=== PATIENT | female | born 1935 | race Caucasian/White ===

== ENCOUNTER → 2016-08-04 | Day surgery (SDC) | payer OTHER ==
[2016-07-23 15:22] VITALS: Ht 144.8 cm; Wt 52.3 kg
[~2016-08-04] VITALS: Ht 144.8 cm; Wt 52.3 kg
[~2016-08-04] MED LIST: 500ML BSS 0.3ML EPI 1:1000PF IRRIG ONE; ACETAMINOPHEN 325 MG TAB PO PRN; AMVISC PLUS 0.8ML SYRINGE INT OCU ONE; BROM0.07 OPL; BSS FLUSH ONE; CALC-354 PO; ENDOCOAT 0.85ML SYRINGE INT OCU ONE; EpINEphrine INJ 1MG/ML AMP 1 MG/ML AMP ONE; HYDR25TA4 PO; LACTATED RINGER'S 1000ML 500 ML IV SCH; LIDOCAINE 4% OP SOLN DROP CHARGE ONE; LIDOCAINE 4% OP SOLN DROP CHARGE OPL SCH; LIDOCAINE HCL 1% MPF 2 ML VIAL ONE; MCRK/10 PO; MIDAZOLAM HCL 1 MG/ML 2ML VIAL ONE; MIX: 4ML BSS 1ML EPI 1:1000 PF TOP ONE; MOXIFLOXACIN OPH SOLN PER DROP CHARGE ONE; MULT-506 PO; POVIDONE-IODINE OP SOLN 30 ML BTL ONE; PRED-301 PO; PRED1SUS OPL; PROPARACAINE 0.5% OP SOLN PER DROP CHARGE OPL SCH; SIMV40TA2 PO; TOBRAMYCIN/DEXAMETHASONE OPH OINT PER APPLN CHARGE ONE; ZNTT/150 PO
[2016-08-04] MEDS: PHENYLEPHRINE HCL 2.5% OP SOLN PER DROP CHARGE OPL SCH ×3 (09:24→09:33)
[2016-08-04] MEDS: TROPICAMIDE 1% OP SOLN PER DROP CHARGE OPL SCH ×3 (09:25→09:35)
[2016-08-04] MEDS: CYCLOPENTOLATE HCL 1% OP SOLN PER DROP CHARGE OPL SCH ×3 (09:26→09:36)
[2016-08-04] MEDS: MOXIFLOXACIN OPH SOLN PER DROP CHARGE OPL SCH ×3 (09:27→09:37)
--- NOTE | 2016-08-04 09:37 | History & Physical Bridge - [place] ---
H&P Re-Evaluation Bridge Note: I have examined the patient, reviewed the History & Physical and in the interval since the performance of the History & Physical I have noted the following changes of clinical significance: No changes noted. Left eye cataract surgery.
--- NOTE | 2016-08-04 11:02 | [facility] Post Operative Brief Note ---
Immediate Operative Summary Operative Date Aug 04, 2016. Pre-Operative Diagnosis Cataract Left Eye Post-Operative Diagnosis Same Procedure(s) Performed Left Cataract Phacoemulsification With Intraocular Lens Implant Surgeon Dr. Briseno Elevator Constructor Electric Surgeon(s) None Estimated Blood Loss 0 mL Findings left cataract Specimens None Complication(s) None Disposition
--- NOTE | 2016-08-04 11:03 | [facility] Operative Report ---
Operative Report Date of Service Aug 04, 2016. Operative Report Phaco with monofocal IOL DATE OF OPERATION: 08/04/16 PREOPERATIVE DIAGNOSIS: Senile nuclear cataract, left eye POSTOPERATIVE DIAGNOSIS: Senile nuclear cataract, left eye PROCEDURE PERFORMED: Phacoemulsification with intraocular lens implantation, left eye SURGEON: Dr. Rex Briseno ANESTHESIA: Topical with 1% intracameral lidocaine and monitored anesthesia care COMPLICATIONS: None DESCRIPTION OF PROCEDURE: After positively identifying the patient both verbally and by wristband in the preoperative area, the left eye was marked as the operative eye. The patient was then brought back to the operating room by the anesthesia and nursing staff where they were given a drop of Lidocaine and betadine into the operative eye. They were then sterilely prepped and draped in the standard fashion typical for ophthalmic surgery. Steri-strips were placed along the upper eyelids to keep the lashes back, and a lid speculum was placed into the operative eye. At this point, a documented time out was performed with members of the ophthalmology, nursing, and anesthesia staffs all agreeing upon the correct patient, correct location for surgery, correct procedure, and correct type and power of intraocular lens to be implanted. The microscope was then swung into position. First, a paracentesis wound was made using a sideport blade. Then, in sequence, 1% preservative-free lidocaine followed by Endocoat viscoelastic was injected into the anterior chamber. Next , the main incision was made with a keratome blade in triplanar fashion. A sharp cystotome was introduced into the eye and used to create a tear in the anterior capsule, which was directed into a continuous curvilinear capsulorrhexis using Utrata forceps. Hydrodissection was then performed with BSS on a flat-tip cannula. Next, the phacoemulsification handpiece was introduced into the eye and used to remove the nucleus in a qckikt-smc-ngifeph fashion. This was done without complication and then the irrigation-aspiration handpiece was introduced into the eye and used to remove all remaining cortical and epinuclear material. Amvisc was then injected into the anterior chamber as well as into the capsular bag and using the lens injector system, an MX60 23.0 D lens, serial number [id number], and expiration date 01/2019 was injected into the capsular bag and rotated into the correct position. Next, the irrigation- aspiration handpiece was used to remove all remaining Amvisc. BSS was used to hydrate the main wound, and then BSS was injected into the paracentesis site to reach physiologic pressure and then the main wound was checked and found to be watertight. The patient was given drops of Vigamox and Tobradex ointment into the operative eye, and then the surrounding area was cleaned and dried. A clear plastic shield was placed over the eye and the patient was then sat up and taken from the operating room by the anesthesia staff having tolerated the procedure well and suffering no complications. DISPOSITION: The patient was returned to the recovery room in stable condition. I attest to the content of the Intraoperative Record and any orders documented therein. Any exceptions are noted below.
--- NOTE | 2016-08-04 11:05 | Discharge Instructions-SurgCtr ---
Discharge Instructions Date of Service Aug 04, 2016. Visit Reason for Visit: Cataract Left Eye Discharge Discharge Diagnosis / Problem: left cataract Discharge Goals Goal(s): Decrease discomfort, Improve function Activity Recommendations Activity Limitations: as noted below Anesthesia . Post Anesthesia Instructions: If you have had General Anesthesia or IV Sedation: * Do not drive today. * Resume driving when surgeon permits. * Do not make important decisions or sign legal documents today. * Call surgeon for: 1. Temperature elevations greater than 101 degrees F. 2. Uncontrollable pain. 3. Excessive bleeding. 4. Persistent nausea and vomiting. 5. Medication intolerance (nausea, vomiting or rash). * For nausea and vomiting use only clear liquids such as: tea, soda, bouillon until nausea subsides, then gradually increase diet as tolerated. * If you have any concerns or questions, call your surgeon's office. If physician is unavailable and it is an emergency, call 911 or go to the nearest emergency room. . Instructions / Follow-Up Instructions / Follow-Up ACTIVITY RECOMMENDATIONS: * Light activities. * You may walk outside, read, watch television. * You may notice redness on the white part of the eye and some blurry vision - this is normal. MEDICATIONS: Resume previous medications unless instructed otherwise by your surgeon. Start all eye drops at 1 pm today: * Eye drops (today): Prednisone - one drop in operative eye every 2 hours while awake Ofloxacin - one drop in operative eye every 2 hours while awake Bromfenac - one drop in operative eye daily SPECIAL CARE INSTRUCTIONS: * Tape plastic shield over eye to sleep at night. Call your doctor at with any concerns or problems. FOLLOW UP VISIT: Follow-up with Dr Briseno at [place] office as scheduled. Diet Recommendations Home Diet: no limitations Procedures Procedures Performed: Left Cataract Phacoemulsification With Intraocular Lens Implant Pending Studies Studies pending at discharge: no Medical Emergencies . Who to Call and When: Medical Emergencies: If at any time you feel your situation is an emergency, please call 911 immediately. . Non-Emergent Contact Non-Emergency issues call your: Surgeon . . "Provider Documentation" section prepared by Rex Briseno. .
[2016-08-04 11:06] VITALS: TEMP 36.7
--- NOTE | 2016-08-04 11:10 | Anesthesia Progress Nt - [facility] ---
Anesthesia Post Op Note Date & Time Aug 04, 2016 at 11:09 Vital Signs Pain Intensity: 0 Vital Signs Past 12 Hours Date Time Temp Pulse Resp B/P Pulse Ox O2 Delivery O2 Flow Rate FiO2 08/04/16 11:06 36.7 62 16 158/71 96 Room Air 08/04/16 09:14 36.5 62 18 165/71 97 Room Air Notes Mental Status: alert / awake / arousable, participated in evaluation Pt Amnestic to Procedure: No (recall as expected) Nausea / Vomiting: adequately controlled Pain: adequately controlled Airway Patency, RR, SpO2: stable & adequate BP & HR: stable & adequate Hydration State: stable & adequate Anesthetic Complications: no major complications apparent Pt doing well.
[2016-08-04 11:23] VITALS: BP 158/69; PULSE 58; O2SAT 95
== END | disposition home or self-care (01) ==
LOC: X.SURG 08:59
PROVIDERS: ATTEND Ophthalmology
DX: H25.12 Age-related nuclear cataract, left eye (principal); I10 Essential (primary) hypertension; M06.9 Rheumatoid arthritis, unspecified; E78.00 Pure hypercholesterolemia, unspecified; Z90.710 Acquired absence of both cervix and uterus

== ENCOUNTER → 2016-08-25 | Day surgery (SDC) | payer OTHER ==
[2016-08-19 10:55] VITALS: Ht 144.8 cm; Wt 52.3 kg
[~2016-08-25] VITALS: Ht 144.8 cm; Wt 52.3 kg
[~2016-08-25] MED LIST changes: +FENTANYL CITRATE INJ 50 MCG/1 ML 2 ML VIAL ONE; -LIDOCAINE 4% OP SOLN DROP CHARGE OPL SCH; +LIDOCAINE 4% OP SOLN DROP CHARGE OPR SCH; -PROPARACAINE 0.5% OP SOLN PER DROP CHARGE OPL SCH; +PROPARACAINE 0.5% OP SOLN PER DROP CHARGE OPR SCH
[2016-08-25] MEDS: PHENYLEPHRINE HCL 2.5% OP SOLN PER DROP CHARGE OPR SCH ×3 (10:53→11:03)
[2016-08-25] MEDS: TROPICAMIDE 1% OP SOLN PER DROP CHARGE OPR SCH ×3 (10:54→11:04)
[2016-08-25] MEDS: CYCLOPENTOLATE HCL 1% OP SOLN PER DROP CHARGE OPR SCH ×3 (10:55→11:05)
[2016-08-25] MEDS: MOXIFLOXACIN OPH SOLN PER DROP CHARGE OPR SCH ×3 (10:56→11:06)
--- NOTE | 2016-08-25 11:31 | History & Physical Bridge - [place] ---
H&P Re-Evaluation Bridge Note: I have examined the patient, reviewed the History & Physical and in the interval since the performance of the History & Physical I have noted the following changes of clinical significance: No changes noted. Right eye cataract surgery.
--- NOTE | 2016-08-25 12:36 | [facility] Post Operative Brief Note ---
Immediate Operative Summary Operative Date August 25, 2016. Pre-Operative Diagnosis Right Eye Cataract Post-Operative Diagnosis same Procedure(s) Performed Right Cataract Phacoemulsification With Intraocular Lens Implant Surgeon Dr. Connie Briseno Booking Manager Surgeon(s) 0 Estimated Blood Loss 0 Findings right cataract Specimens none Complication(s) None Disposition
--- NOTE | 2016-08-25 12:37 | [facility] Operative Report ---
Operative Report Date of Service August 25, 2016. Operative Report Phaco with monofocal IOL DATE OF OPERATION: 08/25/16 PREOPERATIVE DIAGNOSIS: Senile nuclear cataract, right eye POSTOPERATIVE DIAGNOSIS: Senile nuclear cataract, right eye PROCEDURE PERFORMED: Phacoemulsification with intraocular lens implantation, right eye SURGEON: Dr. Rex Briseno ANESTHESIA: Topical with 1% intracameral lidocaine and monitored anesthesia care COMPLICATIONS: None DESCRIPTION OF PROCEDURE: After positively identifying the patient both verbally and by wristband in the preoperative area, the right eye was marked as the operative eye. The patient was then brought back to the operating room by the anesthesia and nursing staff where they were given a drop of Lidocaine and betadine into the operative eye. They were then sterilely prepped and draped in the standard fashion typical for ophthalmic surgery. Steri-strips were placed along the upper eyelids to keep the lashes back, and a lid speculum was placed into the operative eye. At this point, a documented time out was performed with members of the ophthalmology, nursing, and anesthesia staffs all agreeing upon the correct patient, correct location for surgery, correct procedure, and correct type and power of intraocular lens to be implanted. The microscope was then swung into position. First, a paracentesis wound was made using a sideport blade. Then, in sequence, 1% preservative-free lidocaine followed by Endocoat viscoelastic was injected into the anterior chamber. Next , the main incision was made with a keratome blade in triplanar fashion. A sharp cystotome was introduced into the eye and used to create a tear in the anterior capsule, which was directed into a continuous curvilinear capsulorrhexis using Utrata forceps. Hydrodissection was then performed with BSS on a flat-tip cannula. Next, the phacoemulsification handpiece was introduced into the eye and used to remove the nucleus in a aobruq-vem-sqpjizl fashion. This was done without complication and then the irrigation-aspiration handpiece was introduced into the eye and used to remove all remaining cortical and epinuclear material. Amvisc was then injected into the anterior chamber as well as into the capsular bag and using the lens injector system, an MX60 23.0 D lens, serial number [id number], and expiration date 04/2019 was injected into the capsular bag and rotated into the correct position. Next, the irrigation- aspiration handpiece was used to remove all remaining Amvisc. BSS was used to hydrate the main wound, and then BSS was injected into the paracentesis site to reach physiologic pressure and then the main wound was checked and found to be watertight. The patient was given drops of Vigamox and Tobradex ointment into the operative eye, and then the surrounding area was cleaned and dried. A clear plastic shield was placed over the eye and the patient was then sat up and taken from the operating room by the anesthesia staff having tolerated the procedure well and suffering no complications. DISPOSITION: The patient was returned to the recovery room in stable condition. I attest to the content of the Intraoperative Record and any orders documented therein. Any exceptions are noted below.
--- NOTE | 2016-08-25 12:38 | Discharge Instructions-SurgCtr ---
Discharge Instructions Date of Service August 25, 2016. Visit Reason for Visit: Cataract Right Eye Discharge Discharge Diagnosis / Problem: right cataract Discharge Goals Goal(s): Decrease discomfort, Improve function Activity Recommendations Activity Limitations: as noted below Anesthesia . Post Anesthesia Instructions: If you have had General Anesthesia or IV Sedation: * Do not drive today. * Resume driving when surgeon permits. * Do not make important decisions or sign legal documents today. * Call surgeon for: 1. Temperature elevations greater than 101 degrees F. 2. Uncontrollable pain. 3. Excessive bleeding. 4. Persistent nausea and vomiting. 5. Medication intolerance (nausea, vomiting or rash). * For nausea and vomiting use only clear liquids such as: tea, soda, bouillon until nausea subsides, then gradually increase diet as tolerated. * If you have any concerns or questions, call your surgeon's office. If physician is unavailable and it is an emergency, call 911 or go to the nearest emergency room. . Instructions / Follow-Up Instructions / Follow-Up ACTIVITY RECOMMENDATIONS: * Light activities. * You may walk outside, read, watch television. * You may notice redness on the white part of the eye and some blurry vision - this is normal. MEDICATIONS: Resume previous medications unless instructed otherwise by your surgeon. Start all eye drops at 2:30 pm today: * Eye drops (today): Prednisone - one drop in operative eye every 2 hours while awake Ofloxacin - one drop in operative eye every 2 hours while awake Bromfenac - one drop in operative eye daily SPECIAL CARE INSTRUCTIONS: * Tape plastic shield over eye to sleep at night. Call your doctor at with any concerns or problems. FOLLOW UP VISIT: Follow-up with Dr Briseno at [facility] as scheduled. Diet Recommendations Home Diet: no limitations Procedures Procedures Performed: Right Cataract Phacoemulsification With Intraocular Lens Implant Pending Studies Studies pending at discharge: no Medical Emergencies . Who to Call and When: Medical Emergencies: If at any time you feel your situation is an emergency, please call 911 immediately. . Non-Emergent Contact Non-Emergency issues call your: Surgeon . . "Provider Documentation" section prepared by Rex Briseno. .
[2016-08-25 12:40] VITALS: TEMP 36.3
--- NOTE | 2016-08-25 12:46 | Anesthesia Progress Nt - [facility] ---
Anesthesia Post Op Note Date & Time August 25, 2016 at 12:46 Vital Signs Pain Intensity: 0 Vital Signs Past 12 Hours Date Time Temp Pulse Resp B/P Pulse Ox O2 Delivery O2 Flow Rate FiO2 08/25/16 12:40 36.3 50 16 147/67 94 Room Air 08/25/16 10:48 36.7 58 16 136/74 95 Room Air Notes Mental Status: alert / awake / arousable, participated in evaluation Pt Amnestic to Procedure: Yes Nausea / Vomiting: adequately controlled Pain: adequately controlled Airway Patency, RR, SpO2: stable & adequate BP & HR: stable & adequate Hydration State: stable & adequate Anesthetic Complications: no major complications apparent
[2016-08-25 12:54] VITALS: BP 151/73; PULSE 53; O2SAT 96
== END | disposition home or self-care (01) ==
LOC: X.SURG 10:25
PROVIDERS: ATTEND Ophthalmology
DX: H25.11 Age-related nuclear cataract, right eye (principal); I10 Essential (primary) hypertension; E11.9 Type 2 diabetes mellitus without complications; M19.90 Unspecified osteoarthritis, unspecified site; Z88.0 Allergy status to penicillin; Z98.42 Cataract extraction status, left eye; Z90.710 Acquired absence of both cervix and uterus; Z79.52 Long term (current) use of systemic steroids

== ENCOUNTER → 2016-08-27 | Outpatient (CLI) | payer OTHER ==
[~2016-08-27] MED LIST changes: -500ML BSS 0.3ML EPI 1:1000PF IRRIG ONE; -ACETAMINOPHEN 325 MG TAB PO PRN; -AMVISC PLUS 0.8ML SYRINGE INT OCU ONE; -BSS FLUSH ONE; -ENDOCOAT 0.85ML SYRINGE INT OCU ONE; -EpINEphrine INJ 1MG/ML AMP 1 MG/ML AMP ONE; -FENTANYL CITRATE INJ 50 MCG/1 ML 2 ML VIAL ONE; -LACTATED RINGER'S 1000ML 500 ML IV SCH; -LIDOCAINE 4% OP SOLN DROP CHARGE ONE; -LIDOCAINE 4% OP SOLN DROP CHARGE OPR SCH; -LIDOCAINE HCL 1% MPF 2 ML VIAL ONE; -MIDAZOLAM HCL 1 MG/ML 2ML VIAL ONE; -MIX: 4ML BSS 1ML EPI 1:1000 PF TOP ONE; -MOXIFLOXACIN OPH SOLN PER DROP CHARGE ONE; -POVIDONE-IODINE OP SOLN 30 ML BTL ONE; -PROPARACAINE 0.5% OP SOLN PER DROP CHARGE OPR SCH; -TOBRAMYCIN/DEXAMETHASONE OPH OINT PER APPLN CHARGE ONE
[2016-08-27 13:29] LABS: ALB/GLOB RATIO 1.2 (0.9-2); ALKALINE PHOSPHATASE 46 U/L (45-117); ALT/SGPT 25 U/L (12-78); AST/SGOT 15 U/L (15-37); BLOOD UREA NITROGEN 16 mg/dl (7-18); BUN/CREATININE RATIO 24.5 (10-20); CALCIUM 8.7 mg/dl (8.5-10.1); CARBON DIOXIDE 29 mmol/L (21-32); CHLORIDE 104 mmol/L (98-107); CHOLESTEROL 177 mg/dl (0-200); CHOLESTEROL/HDL RATIO 2.2; CREATININE 0.66 mg/dl (0.60-1.20); GLUCOSE 108 mg/dl (70-99); HDL CHOLESTEROL 79 mg/dl; LDL CHOLESTEROL CALCULATED 72 mg/dl; POTASSIUM 3.7 mmol/L (3.5-5.1); SODIUM 139 mmol/L (136-145); TRIGLYCERIDES 129 mg/dl (0-150); VERY LOW DENSITY LIPOPROT CALC 26 mg/dl
[2016-08-27 13:44] LABS: ESTIMATED AVERAGE GLUCOSE 151 mg/dl; HA1C FLAG Normal (Normal)
== END | disposition home or self-care (01) ==
LOC: C.LABPVFM 09:20
PROVIDERS: ATTEND Nurse Practitioner
DX: R73.01 Impaired fasting glucose (principal); E78.5 Hyperlipidemia, unspecified; I10 Essential (primary) hypertension

== ENCOUNTER → 2016-10-06 | Outpatient (CLI) | payer OTHER ==
--- NOTE | 2016-10-06 16:08 | MAMMOGRAPHY REPORT ---
BILATERAL DIGITAL SCREENING MAMMOGRAM WITH CAD: 10/06/2016 CLINICAL HISTORY: Routine screening. Patient has no complaints. TECHNIQUE: Bilateral CC and MLO, right XCCL views were obtained. Current study was also evaluated w ith a Computer Aided Detection (CAD) system. COMPARISON: Comparison is made to exams dated: 09/12/2015 mammogram, 09/10/2014 mammogram, 08/29/2013 [place] mogram, 08/28/2012 mammogram, 08/26/2011 mammogram, and 08/24/2010 mammogram - [facility]. BREAST COMPOSITION: There are scattered areas of fibroglandular density in both breasts. FINDINGS: There are a few benign rim calcifications scattered in the breasts. No suspicious mass, ar chitectural distortion or cluster of microcalcifications is seen. IMPRESSION: ACR BI-RADS CATEGORY 1: NEGATIVE There is no mammographic evidence of malignancy. A 1 year screening mammogram is recommended. The pa tient will receive written notification of the results. Approximately 10% of breast cancers are not detected with mammography. A negative mammographic report should not delay biopsy if a clinically suggestive mass is present. Denita Sethi M.D. ay/:10/06/2016 15:17:43 Flight Attendant Ramp: Adia CHRIS(Bryon)([place])([place]), [facility] letter sent: Normal 1/2 BI-RADS Code: ACR BI-RADS Category 1: Negative
== END | disposition home or self-care (01) ==
LOC: C.MAMM 14:50
PROVIDERS: ATTEND Nurse Practitioner
DX: Z12.31 Encounter for screening mammogram for malignant neoplasm of breast (principal)

== ENCOUNTER → 2017-02-23 | Outpatient (CLI) | payer OTHER ==
[2017-02-23 13:15] LABS: BLOOD UREA NITROGEN 14 mg/dl (7-18); BUN/CREATININE RATIO 20.5 (10-20); CALCIUM 9.3 mg/dl (8.5-10.1); CARBON DIOXIDE 28 mmol/L (21-32); CHLORIDE 98 mmol/L (98-107); CREATININE 0.69 mg/dl (0.60-1.20); GLUCOSE 103 mg/dl (70-99); POTASSIUM 3.6 mmol/L (3.5-5.1); SODIUM 134 mmol/L (136-145)
[2017-02-23 13:22] LABS: ESTIMATED AVERAGE GLUCOSE 154 mg/dl; HA1C FLAG Normal (Normal)
== END | disposition home or self-care (01) ==
LOC: C.LABPVFM 08:59
PROVIDERS: ATTEND Nurse Practitioner
DX: R73.01 Impaired fasting glucose (principal); I10 Essential (primary) hypertension

== ENCOUNTER → 2017-08-26 | Outpatient (CLI) | payer OTHER ==
[~2017-08-26] MED LIST changes: +RANI150T85 PO; -ZNTT/150 PO
[2017-08-26 13:30] LABS: HEMOGLOBIN A1C 6.9 % (4.5-5.6)
[2017-08-26 13:46] LABS: BLOOD UREA NITROGEN 21 mg/dl (7-18); CALCIUM 8.8 mg/dl (8.5-10.1); CARBON DIOXIDE 30 mmol/L (21-32); CREATININE 0.78 mg/dl (0.60-1.20); GLUCOSE 104 mg/dl (70-99); POTASSIUM 3.9 mmol/L (3.5-5.1); SODIUM 135 mmol/L (136-145)
== END | disposition home or self-care (01) ==
LOC: C.LABPVFM 08:18
PROVIDERS: ATTEND Nurse Practitioner
DX: I10 Essential (primary) hypertension (principal); R73.01 Impaired fasting glucose

== ENCOUNTER 2020-07-21 17:24 | Inpatient (IN) ==
--- NOTE | 2020-07-21 17:51 | Emergency Department Note ---
Impression & Plan COVID-19, Weakness, Aortic dilatation ED Provider Note NAME: ED BOWEN AGE: 85 SEX: F : 1935 ARRIVES VIA: Ambulance INFORMANT: patient, ED PROVIDER(S): Benji Contreras MD Chief Complaint: Weakness HPI: Patient does present with concern for weakness that she noticed this morning. The patient also noticed some difficulty with left upper extremity movement. The patient did have fever in triage but the patient denies any fevers or chills. The patient is vaccinated for Covid which was completed back in May. The patient denies any headache, neck pain, nausea, vomiting, back pain, chest pain or shortness of breath. The patient states that her bilateral lower extremity weakness was also present this morning when she woke up. Patient states that this is about the same. The patient denies any sensory deficits. Patient does state that she does have some pain in the left shoulder. Patient denies any exertional symptoms. Patient denies any alcohol or tobacco use. No remote history of smoking. Patient denies any lower extremity swelling. Patient was seen at [facility] had a negative rapid Covid and was sent here for further evaluation and treatment. ROS: See HPI for pertinent positives and negatives. A total of 10 systems were reviewed and otherwise negative. Past medical history: See below Surgical history: See below Social history: See below Physical Exam: GENERAL: Wearing glasses and a mask. NAD, non-toxic. EYE EXAM: Normal conjunctiva. PERRL, no anisocoria and EOM's grossly intact w/o pain. NECK: Supple, no nuchal rigidity, no adenopathy, non-tender. No signs of meningismus. LUNGS: Clear to auscultation. Normal chest wall mechanics. HEART: NSR, no MRG. ABDOMEN: Abdomen soft, non-tender, normo-active bowel sounds, no masses, no rebound or guarding. BACK: No CVA TTP. SKIN: No rashes and no bruising. UPPER EXTREMITIES: Upper extremities are grossly normal. LOWER EXTREMITIES: Grossly normal, no edema. 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 Differential diagnoses: Infection, dehydration, metabolic abnormality, hypo/hyperglycemia, electrolyte disturbance, anemia, hypoxia, cardiac sources, intracerebral event, toxicologic, neurologic, as well as other pathologies. Course: Patient was seen and evaluated the bedside. Full history physical exam was performed. EKG: Indication: Weakness Normal sinus rhythm, rate of 82, normal intervals, left axis deviation, T WI V5 V6. No prior EKGs for comparison. Imaging Studies: See below Cardiac monitoring: An order was placed for continuous cardiac monitoring. The monitor shows a rate of 87 with sinus rhythm. MDM: Patient did have bladder completed along with CT angiography of the head and neck. The patient has had fever so Covid flu and RSV were tested along with urinalysis. Patient has a white count of 15 with a normal H&H and platelet count. Kidney function with mild prerenal azotemia potassium 3.2. Troponin undetectable. Covid positive and negative for flu and RSV. The patient does not complain of respiratory symptoms. Given this with the weakness of the left upper extremity with the patient benefit from continued observation and testing at this time. Chest x-ray which showed cardiomegaly. Patient CT of the head and CT angiography of the head neck showed no ICH mass or obvious stroke. The patient does have mild aneurysmal dilatation of the descending thoracic aorta seen on angiography. Patient does not complain of any chest pain or shortness of breath. Patient's EKG shows T wave inversions V5 V6 but the patient does not complain of any chest pains or shortness of breath. Troponin is not detectable. I did speak with the on-call hospitalist and the patient was admitted to the medicine service by Dr. Daniel. Did inform the patient of the findings. The patient initially had stated that with her shoulder that there might have been some sort of injury but the patient does not complain of some much pain and is no obvious deformity of the left upper extremity. 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 Patient's CT angiography head and neck did not show any obvious findings with regard to left upper extremity weakness. The patient was well out of the window for stroke alert i.e. TPA as the patient had woken up with the weakness as well as the difficulty with the left upper extremity movement upon waking up this morning. Past Med/Surg History Medical History Diverticulosis History of hyperlipidemia Lump of skin Osteoporosis Seronegative arthritis Tinea cruris Weight loss Surgical History History of cataract surgery History of total hysterectomy with no history of abnormal cervical Papanicolaou smear Hx of oral surgery Family History Mother Hypertension Father Lung cancer Sister Breast cancer Cancer Pancreatic cancer Other Colorectal cancer Myocardial infarction Denies family history of Ovarian cancer Prostate cancer Social History Smoking Status: Never smoker Hx Alcohol Use: No Hx Substance Use: No Beliefs That Will Affect Care: None marital status: / Current Living Situation: Family current occupational status: retired Feels Safe at Home: Yes caffeine: Yes Dental Care, Regularly: No Physical Activity Frequency: Does not Exercise Seatbelt Use: always Sunscreen Use: Yes Allergies Allergies Allergy/AdvReac Type Severity Reaction Status Date / Time metformin AdvReac Mild diarrhea Verified 07/21/20 17:59 aspirin AdvReac Unknown DIARRHEA Unverified 07/21/20 17:59 Penicillins AdvReac Unknown DIARRHEA Unverified 07/21/20 17:59 Home Meds Home Medications Medication Instructions Recorded Confirmed calcium carbonate 600 mg(1,500 1 tab PO DAILY tab 12/12/18 07/21/20 mg)-vitamin D3 800 unit chewable tablet multivitamin 1 tab PO DAILY 12/12/18 07/21/20 hydrochlorothiazide 25 mg PO DAILY 07/21/20 07/21/20 potassium chloride 10 meq PO DAILY 07/21/20 07/21/20 Previous Rx's Medication Instructions Recorded prednisone 5 mg tablet 5 mg PO DAILY #30 tab 12/12/18 omeprazole 20 mg capsule,delayed 20 mg PO DAILY #90 cap 05/08/20 release Results & Data (ED) Vital Signs Vital Signs - 24 hr 07/21/20 17:31 07/21/20 18:30 07/21/20 18:57 Temperature 38.3 C H Temperature Source Oral Pulse Rate 87 Pulse Rate [Apical] 82 Respiratory Rate 18 18 Blood Pressure 170/88 H Blood Pressure [Left Arm] 167/92 H Blood Pressure Mean 115 Blood Pressure Mean [Left Arm] 117 Pulse Oximetry 95 95 95 Oxygen Delivery Method Room Air Room Air Room Air Sepsis Recent Fever Within 48 Hours Yes Sepsis New/Unexplained Change in Mental Status N/A Sepsis Action Taken by Nursing No Action Required 07/21/20 19:30 07/21/20 20:33 07/21/20 21:30 Temperature 37.6 C H Temperature Source Oral Pulse Rate Pulse Rate [Apical] 68 75 Respiratory Rate 18 18 18 Blood Pressure Blood Pressure [Left Arm] 154/73 H 164/72 H 163/102 H Blood Pressure Mean Blood Pressure Mean [Left Arm] 100 102 122 Pulse Oximetry 99 100 96 Oxygen Delivery Method Room Air Room Air Sepsis Recent Fever Within 48 Hours Sepsis New/Unexplained Change in Mental Status Sepsis Action Taken by Nursing 07/21/20 22:00 Temperature Temperature Source Pulse Rate Pulse Rate [Apical] 76 Respiratory Rate 18 Blood Pressure Blood Pressure [Left Arm] 155/85 H Blood Pressure Mean Blood Pressure Mean [Left Arm] 108 Pulse Oximetry Oxygen Delivery Method Room Air Sepsis Recent Fever Within 48 Hours Sepsis New/Unexplained Change in Mental Status Sepsis Action Taken by Retirement Medications Current Medication List: was personally reviewed by me Laboratory Data Attestation: I reviewed the patient's lab results. Result diagrams: 07/21/20 18:02 07/21/20 18:02 Lab Results 07/21/20 07/21/20 07/21/20 Range/Units 18:02 18:02 18:02 WBC 15.28 H (4.8-10.8) K/uL RBC 4.55 (4.2-5.4) M/uL Hgb 14.3 (12.0-16.0) g/dL Hct 40.1 (37-47) % MCV 88.1 (80-100) fL MCH 31.4 (25-34) pg MCHC 35.7 (32-36) g/dL RDW Std Deviation 43.1 (36.4-46.3) fL RDW Coeff of Marita 13.4 (11.5-14.5) % Plt Count 285 (130-400) K/uL MPV 10.0 (7.4-10.4) fL Immature Gran % (Auto) 0.3 % Neut % (Auto) 85.3 % Lymph % (Auto) 4.0 % [place] % (Auto) 9.8 % Eos % (Auto) 0.4 % Baso % (Auto) 0.2 % Neut # (Auto) 13.05 H (1.4-6.5) K/uL Lymph # (Auto) 0.61 L (1.2-3.4) K/uL [place] # (Auto) 1.49 H (0.11-0.59) K/uL Eos # (Auto) 0.06 (0-0.5) K/uL Baso # (Auto) 0.03 (0-0.2) K/uL Immature Gran # (Auto) 0.04 H (0.00-0.02) K/uL Sodium 136 (136-145) mmol/L Potassium 3.2 L (3.5-5.1) mmol/L Chloride 102 (98-107) mmol/L Carbon Dioxide 27 (21-32) mmol/L Anion Gap 7.0 (3-11) BUN 16 (7-18) mg/dl Creatinine 0.73 (0.6-1.2) mg/dl Est Cr Clr Drug Dosing 39.7 ml/min Est GFR ( Amer) 86.4 Est GFR (Non-Af Amer) 74.6 BUN/Creatinine Ratio 22.2 H (10-20) Glucose 195 H (70-99) mg/dl Lactate (0.4-2.0) mmol/L Calcium 9.1 (8.5-10.1) mg/dl Total Bilirubin 0.8 (0.2-1) mg/dl AST 12 L (15-37) U/L ALT 17 (12-78) U/L Alkaline Phosphatase 63 (45-117) U/L Troponin I < 0.015 (0-0.045) ng/ml Total Protein 6.8 (6.4-8.2) gm/dl Albumin 3.4 (3.4-5.0) gm/dl Globulin 3.4 (2.5-4.0) gm/dl Albumin/Globulin Ratio 1.0 (0.9-2) TSH 0.561 0.596 (0.300-4.500) uIu/ml Urine Color Urine Appearance (Clear) Urine pH (4.5-7.5) Ur Specific Boyds (1.000-1.030) Urine Protein (Negative) Urine Glucose (UA) (Negative) Urine Ketones (Negative) Urine Blood (Negative) Urine Nitrite (Negative) Urine Bilirubin (Negative) Urine Urobilinogen (Negative) Ur Leukocyte Esterase (Negative) Urine WBC (Auto) (0-5) /hpf Urine RBC (Auto) (0-4) /hpf U Hyaline Cast (Auto) U Epithel Cells (Auto) (0-5) /lpf Urine Bacteria (Auto) (Negative) COVID-19 Eval Order SARS-CoV-2 (PCR) (Negative) Influenza Type A (PCR) (Neg) Influenza Type B (PCR) (Neg) RSV (RT-PCR) (Neg) 07/21/20 07/21/20 07/21/20 Range/Units 18:03 18:53 18:54 WBC (4.8-10.8) K/uL RBC (4.2-5.4) M/uL Hgb (12.0-16.0) g/dL Hct (37-47) % MCV (80-100) fL MCH (25-34) pg MCHC (32-36) g/dL RDW Std Deviation (36.4-46.3) fL RDW Coeff of Marita (11.5-14.5) % Plt Count (130-400) K/uL MPV (7.4-10.4) fL Immature Gran % (Auto) % Neut % (Auto) % Lymph % (Auto) % [place] % (Auto) % Eos % (Auto) % Baso % (Auto) % Neut # (Auto) (1.4-6.5) K/uL Lymph # (Auto) (1.2-3.4) K/uL [place] # (Auto) (0.11-0.59) K/uL Eos # (Auto) (0-0.5) K/uL Baso # (Auto) (0-0.2) K/uL Immature Gran # (Auto) (0.00-0.02) K/uL Sodium (136-145) mmol/L Potassium (3.5-5.1) mmol/L Chloride (98-107) mmol/L Carbon Dioxide (21-32) mmol/L Anion Gap (3-11) BUN (7-18) mg/dl Creatinine (0.6-1.2) mg/dl Est Cr Clr Drug Dosing ml/min Est GFR ( Amer) Est GFR (Non-Af Amer) BUN/Creatinine Ratio (10-20) Glucose (70-99) mg/dl Lactate 1.3 (0.4-2.0) mmol/L Calcium (8.5-10.1) mg/dl Total Bilirubin (0.2-1) mg/dl AST (15-37) U/L ALT (12-78) U/L Alkaline Phosphatase (45-117) U/L Troponin I (0-0.045) ng/ml Total Protein (6.4-8.2) gm/dl Albumin (3.4-5.0) gm/dl Globulin (2.5-4.0) gm/dl Albumin/Globulin Ratio (0.9-2) TSH (0.300-4.500) uIu/ml Urine Color Yellow Urine Appearance Cloudy A (Clear) Urine pH 8.0 H (4.5-7.5) Ur Specific Boyds > 1.045 H (1.000-1.030) Urine Protein Negative (Negative) Urine Glucose (UA) Negative (Negative) Urine Ketones Negative (Negative) Urine Blood Trace H (Negative) Urine Nitrite Negative (Negative) Urine Bilirubin Negative (Negative) Urine Urobilinogen Negative (Negative) Ur Leukocyte Esterase 2+ H (Negative) Urine WBC (Auto) >30 H (0-5) /hpf Urine RBC (Auto) 5-10 H (0-4) /hpf U Hyaline Cast (Auto) Not Reportable U Epithel Cells (Auto) >30 H (0-5) /lpf Urine Bacteria (Auto) 2+ H (Negative) COVID-19 Eval Order [facility]sv at [facility] SARS-CoV-2 (PCR) (Negative) Influenza Type A (PCR) (Neg) Influenza Type B (PCR) (Neg) RSV (RT-PCR) (Neg) 07/21/20 Range/Units 18:54 WBC (4.8-10.8) K/uL RBC (4.2-5.4) M/uL Hgb (12.0-16.0) g/dL Hct (37-47) % MCV (80-100) fL MCH (25-34) pg MCHC (32-36) g/dL RDW Std Deviation (36.4-46.3) fL RDW Coeff of Marita (11.5-14.5) % Plt Count (130-400) K/uL MPV (7.4-10.4) fL Immature Gran % (Auto) % Neut % (Auto) % Lymph % (Auto) % [place] % (Auto) % Eos % (Auto) % Baso % (Auto) % Neut # (Auto) (1.4-6.5) K/uL Lymph # (Auto) (1.2-3.4) K/uL [place] # (Auto) (0.11-0.59) K/uL Eos # (Auto) (0-0.5) K/uL Baso # (Auto) (0-0.2) K/uL Immature Gran # (Auto) (0.00-0.02) K/uL Sodium (136-145) mmol/L Potassium (3.5-5.1) mmol/L Chloride (98-107) mmol/L Carbon Dioxide (21-32) mmol/L Anion Gap (3-11) BUN (7-18) mg/dl Creatinine (0.6-1.2) mg/dl Est Cr Clr Drug Dosing ml/min Est GFR ( Amer) Est GFR (Non-Af Amer) BUN/Creatinine Ratio (10-20) Glucose (70-99) mg/dl Lactate (0.4-2.0) mmol/L Calcium (8.5-10.1) mg/dl Total Bilirubin (0.2-1) mg/dl AST (15-37) U/L ALT (12-78) U/L Alkaline Phosphatase (45-117) U/L Troponin I (0-0.045) ng/ml Total Protein (6.4-8.2) gm/dl Albumin (3.4-5.0) gm/dl Globulin (2.5-4.0) gm/dl Albumin/Globulin Ratio (0.9-2) TSH (0.300-4.500) uIu/ml Urine Color Urine Appearance (Clear) Urine pH (4.5-7.5) Ur Specific Boyds (1.000-1.030) Urine Protein (Negative) Urine Glucose (UA) (Negative) Urine Ketones (Negative) Urine Blood (Negative) Urine Nitrite (Negative) Urine Bilirubin (Negative) Urine Urobilinogen (Negative) Ur Leukocyte Esterase (Negative) Urine WBC (Auto) (0-5) /hpf Urine RBC (Auto) (0-4) /hpf U Hyaline Cast (Auto) U Epithel Cells (Auto) (0-5) /lpf Urine Bacteria (Auto) (Negative) COVID-19 Eval Order SARS-CoV-2 (PCR) POSITIVE A* (Negative) Influenza Type A (PCR) Negative (Neg) Influenza Type B (PCR) Negative (Neg) RSV (RT-PCR) Negative (Neg) Administered Medications Discontinued Medications Sodium Chloride (Nss) 500 mls @ 999 mls/hr IV .Q31M NELLA Stop: 07/21/20 18:45 Last Infusion: 07/21/20 19:32 Dose: 0 mls/hr Documented by: [id number] Admin: 07/21/20 18:50 Dose: 999 mls/hr Documented by: [id number] Ioversol (Optiray 320 125ml) 119 ml IV ONCE ONE Stop: 07/21/20 19:56 Last Admin: 07/21/20 19:56 Dose: 119 ml Documented by: [id number] Imaging Data Radiologist's Impression: Chest X-Ray 07/21/20 17:36 SINGLE VIEW CHEST CLINICAL HISTORY: Generalized weakness. FINDINGS: An AP, portable, upright chest radiograph is obtained No prior studies are available for comparison at the time of dictation. The examination is degraded by portable technique and patient rotation. The heart is enlarged. There is atherosclerotic calcification with uncoiling of the thoracic aorta. Aneurysmal dilatation is not excluded. The pulmonary vasculature is noncongested. There is bibasilar scarring/atelectasis. No airspace consolidation or large pleural effusion is identified. No pneumothorax is seen. The skeletal structures are osteopenic. The bony thorax is grossly intact. IMPRESSION: 1. Cardiomegaly with no acute cardiopulmonary abnormality. 2. There is atherosclerotic calcification with uncoiling of the thoracic aorta. Aneurysm is not excluded. ACT 112: Negative or not required by law. Electronically signed by: Bert Thomas M.D. 07/21/2020 8:[address] 07/21/20 18:[address] OF THE BRAIN; CT ANGIOGRAM OF THE BRAIN; CT ANGIOGRAM OF THE NECK CLINICAL HISTORY: Left upper extremity weakness. COMPARISON STUDY: CT of the brain dated 12/20/2019. TECHNIQUE: Unenhanced axial CT scan of the brain is performed. Subsequently, following the IV administration of 119 of Optiray 320, CT angiogram of the head and neck was performed from the aortic arch to the vertex. Images are reviewed in the axial, sagittal, and coronal planes. 3-D MIPS images are created and asse ssed. IV contrast was administered without complication. All measurements were calculated based on NASCET criteria. A dose lowering technique was utilized adhering to the principles of ALARA. CT DOSE: 1000.83 mGy.cm FINDINGS: Brain parenchyma: There is age-related involutional change noting moderate subcortical and periventricular microangiopathic disease. There is no hemorrhage, mass effect, or evidence of acute territorial ischemia by CT criteria. There is no evidence of enhancing mass lesion on the angiogram phase images. The ventricles, sulci, and cisterns are prominent secondary to involutional change. Ferrari-white matter differentiation is preserved. No extra- axial fluid collection is seen. Thoracic aorta: There is atherosclerotic calcification of the thoracic aorta. There is mild aneurysmal dilatation of the visualized descending thoracic aorta. This measures up to 3.7 cm diameter. Visualized portions of the ascending thoracic aorta measure up to 3.2 cm in diameter. The aortic arch demonstrates standard 3-vessel anatomy. Right carotid arterial system: The right common carotid artery is widely patent, as are the right internal and external carotid arteries. Calcified plaque is noted in the carotid bulb. The internal carotid artery demonstrates a beaded appearance. Left carotid arterial system: The left common carotid artery is widely patent, as are the left internal and external carotid arteries. Atherosclerotic plaque is noted in the carotid bulb. There is a beaded appearance of the distal internal carotid artery. Vertebral arteries: The vertebral arteries are widely patent bilaterally noting a right-sided dominance. Subclavian arteries: Widely patent bilaterally. Intracranial vasculature: There is atherosclerotic calcification of the cavernous carotid arteries. The internal carotid arteries are patent at the skull base, as are the anterior and middle cerebral arteries bilaterally. The vertebrobasilar system and posterior cerebral arteries are widely patent. The left A1 segment is diminutive. The right vertebral artery is dominant. The right P1 segment is diminutive and there is a right posterior communicating artery. There is no aneurysm, high-grade stenosis, or focal vessel cut off seen throughout the intracranial circulation. Jugular veins: Patent bilaterally. Dural sinuses: Patent. Lung apices: Partially visualized upper lobe lung parenchyma appears clear. Soft tissues: The visualized pharyngeal soft tissues are normal in appearance noting angiographic phase technique. The oropharyngeal airway appears widely patent. The salivary and thyroid glands are normal in appearance. No cervical lymphadenopathy is seen. Skeletal structures: The skeletal structures are osteopenic. The calvarium appears intact. The cervical spine is maintained noting advanced multilevel spondylosis. A bone island is noted in the body of T4. No lytic or blastic lesion is seen. Orbits: The bony hips are intact. Orbital contents are normal as visualized noting bilateral ocular lens implants. Sinuses and mastoids: The paranasal sinuses are clear. The mastoid air cells are well pneumatized. IMPRESSION: 1. There is no hemorrhage, mass effect, or evidence of acute territorial ischemia by CT criteria. 2. Unremarkable CT angiogram of the brain. 3. The internal carotid arteries demonstrate a beaded appearance bilaterally suggesting fibromuscular dysplasia. 4. Otherwise unremarkable CT angiogram of the neck. The carotid arteries are patent bilaterally. 5. There is mild aneurysmal dilatation of the partially visualized descending thoracic aorta. ACT 112: Negative or not required by law. Electronically signed by: Bert Thomas M.D. 07/21/2020 8:25 PM Head CTA 07/21/20 18:[address] OF THE BRAIN; CT ANGIOGRAM OF THE BRAIN; CT ANGIOGRAM OF THE NECK CLINICAL HISTORY: Left upper extremity weakness. COMPARISON STUDY: CT of the brain dated 12/20/2019. TECHNIQUE: Unenhanced axial CT scan of the brain is performed. Subsequently, following the IV administration of 119 of Optiray 320, CT angiogram of the head and neck was performed from the aortic arch to the vertex. Images are reviewed in the axial, sagittal, and coronal planes. 3-D MIPS images are created and assessed. IV contrast was administered without complication. All measurements were calculated based on NASCET criteria. A dose lowering technique was utilized adhering to the principles of ALARA. CT DOSE: 1000.83 mGy.cm FINDINGS: Brain parenchyma: There is age-related involutional change noting moderate subcortical and periventricular microangiopathic disease. There is no hemorr tony, mass effect, or evidence of acute territorial ischemia by CT criteria. There is no evidence of enhancing mass lesion on the angiogram phase images. The ventricles, sulci, and cisterns are prominent secondary to involutional change. Ferrari-white matter differentiation is preserved. No extra-axial fluid collection is seen. Thoracic aorta: There is atherosclerotic calcification of the thoracic aorta. There is mild aneurysmal dilatation of the visualized descending thoracic aorta. This measures up to 3.7 cm diameter. Visualized portions of the ascending thoracic aorta measure up to 3.2 cm in diameter. The aortic arch demonstrates standard 3-vessel anatomy. Right carotid arterial system: The right common carotid artery is widely patent, as are the right internal and external carotid arteries. Calcified plaque is noted in the carotid bulb. The internal carotid artery demonstrates a beaded appearance. Left carotid arterial system: The left common carotid artery is widely patent, as are the left internal and external carotid arteries. Atherosclerotic plaque is noted in the carotid bulb. There is a beaded appearance of the distal internal carotid artery. Vertebral arteries: The vertebral arteries are widely patent bilaterally noting a right-sided dominance. Subclavian arteries: Widely patent bilaterally. Intracranial vasculature: There is atherosclerotic calcification of the cavernous carotid arteries. The internal carotid arteries are patent at the skull base, as are the anterior and middle cerebral arteries bilaterally. The vertebrobasilar system and posterior cerebral arteries are widely patent. The left A1 segment is diminutive. The right vertebral artery is dominant. The right P1 segment is diminutive and there is a right posterior communicating artery. There is no aneurysm, high-grade stenosis, or focal vessel cut off seen throughout the intracranial circulation. Jugular veins: Patent bilaterally. Dural sinuses: Patent. Lung apices: Partially visualized upper lobe lung parenchyma appears clear. Soft tissues: The visualized pharyngeal soft tissues are normal in appearance noting angiographic phase technique. The oropharyngeal airway appears widely patent. The salivary and thyroid glands are normal in appearance. No cervical lymphadenopathy is seen. Skeletal structures: The skeletal structures are osteopenic. The calvarium appears intact. The cervical spine is maintained noting advanced multilevel spondylosis. A bone island is noted in the body of T4. No lytic or blastic lesion is seen. Orbits: The bony hips are intact. Orbital contents are normal as visualized noting bilateral ocular lens implants. Sinuses and mastoids: The paranasal sinuses are clear. The mastoid air cells are well pneumatized. IMPRESSION: 1. There is no hemorrhage, mass effect, or evidence of acute territorial ischemia by CT criteria. 2. Unremarkable CT angiogram of the brain. 3. The internal carotid arteries demonstrate a beaded appearance bilaterally suggesting fibromuscular dysplasia. 4. Otherwise unremarkable CT angiogram of the neck. The carotid arteries are patent bilaterally. 5. There is mild aneurysmal dilatation of the partially visualized descending thoracic aorta. ACT 112: Negative or not required by law. Electronically signed by: Bert Thomas M.D. 07/21/2020 8:25 PM Neck CTA 07/21/20 18:[address] OF THE BRAIN; CT ANGIOGRAM OF THE BRAIN; CT ANGIOGRAM OF THE NECK CLINICAL HISTORY: Left upper extremity weakness. COMPARISON STUDY: CT of the brain dated 12/20/2019. TECHNIQUE: Unenhanced axial CT scan of the brain is performed. Subsequently, following the IV administration of 119 of Optiray 320, CT angiogram of the head and neck was performed from the aortic arch to the vertex. Images are reviewed in the axial, sagittal, and coronal planes. 3-D MIPS images are created and assessed. IV contrast was administered without complication. All measurements were calculated based on NASCET criteria. A dose lowering technique was utilized adhering to the principles of ALARA. CT DOSE: 1000.83 mGy.cm FINDINGS: Brain parenchyma: There is age-related involutional change noting moderate subcortical and periventricular microangiopathic disease. There is no hemorrhage, mass effect, or evidence of acute territorial ischemia by CT criteria. There is no evidence of enhancing mass lesion on the angiogram phase images. The ventricles, sulci, and cisterns are prominent secondary to involutional change. Ferrari-white matter differentiation is preserved. No extra- axial fluid collection is seen. Thoracic aorta: There is atherosclerotic calcification of the thoracic aorta. There is mild aneurysmal dilatation of the visualized descending thoracic aorta. This measures up to 3.7 cm diameter. Visualized portions of the ascending thoracic aorta measure up to 3.2 cm in diameter. The aortic arch demonstrates standard 3-vessel anatomy. Right carotid arterial system: The right common carotid artery is widely patent, as are the right internal and external carotid arteries. Calcified plaque is noted in the carotid bulb. The internal carotid artery demonstrates a beaded appearance. Left carotid arterial system: The left common carotid artery is widely patent, as are the left internal and external carotid arteries. Atherosclerotic plaque is noted in the carotid bulb. There is a beaded appearance of the distal internal carotid artery. Vertebral arteries: The vertebral arteries are widely patent bilaterally noting a right-sided dominance. Subclavian arteries: Widely patent bilaterally. Intracranial vasculature: There is atherosclerotic calcification of the caver[place] us carotid arteries. The internal carotid arteries are patent at the skull base, as are the anterior and middle cerebral arteries bilaterally. The vertebrobasilar system and posterior cerebral arteries are widely patent. The left A1 segment is diminutive. The right vertebral artery is dominant. The right P1 segment is diminutive and there is a right posterior communicating artery. There is no aneurysm, high-grade stenosis, or focal vessel cut off seen throughout the intracranial circulation. Jugular veins: Patent bilaterally. Dural sinuses: Patent. Lung apices: Partially visualized upper lobe lung parenchyma appears clear. Soft tissues: The visualized pharyngeal soft tissues are normal in appearance noting angiographic phase technique. The oropharyngeal airway appears widely patent. The salivary and thyroid glands are normal in appearance. No cervical lymphadenopathy is seen. Skeletal structures: The skeletal structures are osteopenic. The calvarium appears intact. The cervical spine is maintained noting advanced multilevel spondylosis. A bone island is noted in the body of T4. No lytic or blastic lesion is seen. Orbits: The bony hips are intact. Orbital contents are normal as visualized noting bilateral ocular lens implants. Sinuses and mastoids: The paranasal sinuses are clear. The mastoid air cells are well pneumatized. IMPRESSION: 1. There is no hemorrhage, mass effect, or evidence of acute territorial ischemia by CT criteria. 2. Unremarkable CT angiogram of the brain. 3. The internal carotid arteries demonstrate a beaded appearance bilaterally suggesting fibromuscular dysplasia. 4. Otherwise unremarkable CT angiogram of the neck. The carotid arteries are patent bilaterally. 5. There is mild aneurysmal dilatation of the partially visualized descending thoracic aorta. ACT 112: Negative or not required by law. Electronically signed by: Bert Thomas M.D. 07/21/2020 8:25 PM Discharge Plan Visit Data Chief Complaint: Weakness ED Provider: Benji Contreras Discharge Problem: COVID-19, Weakness, Aortic dilatation Forms Stand Alone Forms: [facility] Prescriptions Prescriptions: No Action omeprazole 20 mg capsule,delayed release(DR/EC) 20 mg PO DAILY Qty: 90 RF: 3 Caltrate 600 plus D 600 mg (1,500 mg)-800 unit tablet,chewable 1 tab PO DAILY RF: 0 multivitamin [Daily Multi-Vitamin] tablet 1 tab PO DAILY RF: 0 prednisone 5 mg tablet 5 mg PO DAILY Qty: 30 RF: 0 potassium chloride 10 mEq capsule, extended release 10 meq PO DAILY RF: 0 hydrochlorothiazide 25 mg tablet 25 mg PO DAILY RF: 0
[2020-07-21 18:12] LABS: Basophils # (auto) 0.03 K/uL (0-0.2); Basophils % (auto) 0.2 %; Eosinophils # (auto) 0.06 K/uL (0-0.5); Eosinophils % (auto) 0.4 %; Hematocrit (blood only) 40.1 % (37-47); Hemoglobin 14.3 g/dL (12.0-16.0); Immature Granulocytes # (auto) 0.04 K/uL (0.00-0.02); Immature Granulocytes % (auto) 0.3 %; Lymphocytes # (auto) 0.61 K/uL (1.2-3.4); Mean Corpuscular Hemoglobin 31.4 pg (25-34); Mean Corpuscular Hgb Conc 35.7 g/dL (32-36); Mean Corpuscular Volume 88.1 fL (80-100); Monocytes # (auto) 1.49 K/uL (0.11-0.59); Monocytes % (auto) 9.8 %; Neutrophils # (auto) 13.05 K/uL (1.4-6.5); Neutrophils % (auto) 85.3 %; Platelet Count 285 K/uL (130-400); RDW Coefficient of Variation 13.4 % (11.5-14.5); RDW Standard Deviation 43.1 fL (36.4-46.3); Red Blood Count 4.55 M/uL (4.2-5.4); White Blood Count 15.28 K/uL (4.8-10.8)
[2020-07-21] MEDS ORDERED: SODIUM CHLORIDE 0.9% 500 ML IV SCH (18:15)
[2020-07-21 18:47] LABS: Alanine Aminotransferase 17 U/L (12-78); Albumin Level 3.4 gm/dl (3.4-5.0); Aspartate Aminotransferase 12 U/L (15-37); BUN Creatinine Ratio 22.2 (10-20); Blood Urea Nitrogen 16 mg/dl (7-18); Calcium 9.1 mg/dl (8.5-10.1); Carbon Dioxide 27 mmol/L (21-32); Chloride 102 mmol/L (98-107); Creatinine Clr Calc Pharmacy 39.7 ml/min; Est GFR (African American) 86.4; Est GFR (Non-African American) 74.6; Glucose 195 mg/dl (70-99); Potassium 3.2 mmol/L (3.5-5.1); Sodium 136 mmol/L (136-145)
[2020-07-21 18:56] LABS: Alkaline Phosphatase 63 U/L (45-117); Bilirubin,Total 0.8 mg/dl (0.2-1); Globulin 3.4 gm/dl (2.5-4.0); Thyroid Stimulating Hormone 0.561 uIu/ml (0.300-4.500); Total Protein 6.8 gm/dl (6.4-8.2); Troponin I < 0.015 ng/ml (0-0.045)
[2020-07-21 19:52] LABS: Influenza A virus by PCR Negative (Neg); Influenza B virus by PCR Negative (Neg); RSV by PCR Negative (Neg)
[2020-07-21] MEDS ORDERED: OPTIRAY 320 125ml IV ONE (19:55)
[2020-07-21 20:26] LABS: SARS CoV2 RNA(COVID-19) InHosp POSITIVE (Negative)
--- NOTE | 2020-07-21 20:26 | CT Scan Report ---
UNENHANCED CT OF THE BRAIN; CT ANGIOGRAM OF THE BRAIN; CT ANGIOGRAM OF THE NECK CLINICAL HISTORY: Left upper extremity weakness. COMPARISON STUDY: CT of the brain dated 12/20/2019. TECHNIQUE: Unenhanced axial CT scan of the brain is performed. Subsequently, following the IV adminis tration of 119 of [address] [address], CT angiogram of the head and neck was performed from the aortic arch t o the vertex. Images are reviewed in the axial, sagittal, and coronal planes. 3-D MIPS images are cre ated and assessed. IV contrast was administered without complication. All measurements were calculate d based on NASCET criteria. A dose lowering technique was utilized adhering to the principles of ALA RA. CT DOSE: 1000.83 mGy.cm FINDINGS: Brain parenchyma: There is age-related involutional change noting moderate subcortical and periventri cular microangiopathic disease. There is no hemorrhage, mass effect, or evidence of acute territorial ischemia by CT criteria. There is no evidence of enhancing mass lesion on the angiogram phase images . The ventricles, sulci, and cisterns are prominent secondary to involutional change. Ferrari-white torey er differentiation is preserved. No extra-axial fluid collection is seen. Thoracic aorta: There is atherosclerotic calcification of the thoracic aorta. There is mild aneurysma l dilatation of the visualized descending thoracic aorta. This measures up to 3.7 cm diameter. Visual ized portions of the ascending thoracic aorta measure up to 3.2 cm in diameter. The aortic arch demon strates standard 3-vessel anatomy. Right carotid arterial system: The right common carotid artery is widely patent, as are the right int ernal and external carotid arteries. Calcified plaque is noted in the carotid bulb. The internal apple tid artery demonstrates a beaded appearance. Left carotid arterial system: The left common carotid artery is widely patent, as are the left dental internship al and external carotid arteries. Atherosclerotic plaque is noted in the carotid bulb. There is a domo ded appearance of the distal internal carotid artery. Vertebral arteries: The vertebral arteries are widely patent bilaterally noting a right-sided dominan ce. Subclavian arteries: Widely patent bilaterally. Intracranial vasculature: There is atherosclerotic calcification of the cavernous carotid arteries. T he internal carotid arteries are patent at the skull base, as are the anterior and middle cerebral ar teries bilaterally. The vertebrobasilar system and posterior cerebral arteries are widely patent. The left A1 segment is diminutive. The right vertebral artery is dominant. The right P1 segment is dimin utive and there is a right posterior communicating artery. There is no aneurysm, high-grade stenosis, or focal vessel cut off seen throughout the intracranial circulation. Jugular veins: Patent bilaterally. Dural sinuses: Patent. Lung apices: Partially visualized upper lobe lung parenchyma appears clear. Soft tissues: The visualized pharyngeal soft tissues are normal in appearance noting angiographic pha se technique. The oropharyngeal airway appears widely patent. The salivary and thyroid glands are nor mal in appearance. No cervical lymphadenopathy is seen. Skeletal structures: The skeletal structures are osteopenic. The calvarium appears intact. The cervic al spine is maintained noting advanced multilevel spondylosis. A bone island is noted in the body of T4. No lytic or blastic lesion is seen. Orbits: The bony hips are intact. Orbital contents are normal as visualized noting bilateral ocular l ens implants. Sinuses and mastoids: The paranasal sinuses are clear. The mastoid air cells are well pneumatized. IMPRESSION: 1. There is no hemorrhage, mass effect, or evidence of acute territorial ischemia by CT criteria. 2. Unremarkable CT angiogram of the brain. 3. The internal carotid arteries demonstrate a beaded appearance bilaterally suggesting fibromuscular dysplasia. 4. Otherwise unremarkable CT angiogram of the neck. The carotid arteries are patent bilaterally. 5. There is mild aneurysmal dilatation of the partially visualized descending thoracic aorta. ACT 112: Negative or not required by law. Electronically signed by: Bert Thomas M.D. 07/21/2020 8:25 PM
--- NOTE | 2020-07-21 20:27 | XRay Report ---
SINGLE VIEW CHEST CLINICAL HISTORY: Generalized weakness. FINDINGS: An AP, portable, upright chest radiograph is obtained No prior studies are available for co mparison at the time of dictation. The examination is degraded by portable technique and patient rota tion. The heart is enlarged. There is atherosclerotic calcification with uncoiling of the thoracic ao rta. Aneurysmal dilatation is not excluded. The pulmonary vasculature is noncongested. There is bibas ilar scarring/atelectasis. No airspace consolidation or large pleural effusion is identified. No pneu mothorax is seen. The skeletal structures are osteopenic. The bony thorax is grossly intact. IMPRESSION: 1. Cardiomegaly with no acute cardiopulmonary abnormality. 2. There is atherosclerotic calcification with uncoiling of the thoracic aorta. Aneurysm is not exclu ded. ACT 112: Negative or not required by law. Electronically signed by: Bert Thomas M.D. 07/21/2020 8:25 PM
[2020-07-21 20:52] LABS: Appearance Urine Cloudy (Clear); Bacteria Urine Automated 2+ (Negative); Bilirubin Urine Negative (Negative); Blood Urine Trace (Negative); Color Urine Yellow; Epithelial Cell Urine Auto >30 /lpf (0-5); Glucose Urine UA Negative (Negative); Ketones Urine Negative (Negative); Leukocyte Esterase Urine 2+ (Negative); Nitrite Urine Negative (Negative); Protein Urine Negative (Negative); Specific Gravity Urine > 1.045 (1.000-1.030); Urobilinogen Urine Negative (Negative); WBC Urine Automated >30 /hpf (0-5)
[2020-07-22] MEDS ORDERED: POLYETHYLENE (MIRALAX) 17 GM PACK PO PRN (02:05)
[2020-07-22] MEDS ORDERED: ACETAMINOPHEN 325 MG TAB PO PRN (02:05)
[2020-07-22] MEDS ORDERED: PHARMACIST DISCHARGE MED REC CONSULT PRN (02:05)
[2020-07-22] MEDS ORDERED: ALUMINUM/MAGNESIUM SUSP 30 ML UDC PO PRN (02:05)
[2020-07-22] MEDS ORDERED: MAGNESIUM HYDROXIDE SUSP 30 ML UDC PO PRN (02:05)
[2020-07-22] MEDS: cefTRIAXone SODIUM 1,000 MG in DEXTROSE 5% 50 ML IV SCH (02:41)
--- NOTE | 2020-07-22 03:18 | History & Physical Report ---
Date of Service July 22, 2020 Assessment & Plan Admission and Anticipated Discharge Date Admission Date: July 22, 2020 85 yo F w/ pMHx. of hypertension, GERD, and seronegative arthritis here for acute onset left upper extremity weakness along with bilateral lower extremity weakness / poor ambulation and found to be slightly confused and to have UA concerning for UTI. Left upper extremity weakness, new onset concern for stroke vs. traumatic injury to shoulder, although denies trauma - XR ordered to rule out fx or dislocation - stroke workup ordered without tPA given last known well was one day prior - Neurology consulted - CT head without signs of bleed or acute findings although CTA with findings concerning for FMD in report - PT/OT ordered - if stoke seems likely cause for LUE weakness would start prevention measures including ASA and Statin Altered mental status likely 2/2 metabolic encephalopathy with concern 2/2 UTI based on UA - UA with WBC and bacteria, although patient asymptomatic - started on Ceftriaxone, narrow with urine culture results Lower extremity weakness bilaterally symmetric - deconditioning vs. related to UTI - PT/OT COVID-19 + test in the setting of prior vaccination, asymptomatic CXR without infiltrates - COVID precautions - continue to monitor for now Seronegative arthritis - continue prednisone HTN - continue home BP medication Reflux - continue home PPI Discharge planning - children w/ concerned with patients poor ambulation - PT OT and case management consult ordered Code: full Diet: regular DVT: SCD's History of Present Illness Chief Complaint: weakness Primary Care Provider: CARY Louis Elise Levy is here for weakness in her left upper extremity and her bilateral lower extremity. She was somewhat confused on exam and would given different answers for the same question throughout the exam. She initially mentioned that the left arm weakness was over the last week bu then said that it was over the last few years. In talking to her daughter and son they mentioned that this has been going on over the last day; since this morning and did not notice it prior to that. Children expressed their concern that she was not able to ambulate very well. She denies any falls recently. Communication is also difficult due to hearing impairment. She received the COVID vaccine in May and she was COVID negative at [facility] prior to arrival but did test positive here. She denies pain with urination. Allergies Allergy/AdvReac Type Severity Reaction Status Date / Time metformin AdvReac Mild diarrhea Verified 07/21/20 17:59 aspirin AdvReac Unknown DIARRHEA Unverified 07/21/20 17:59 Penicillins AdvReac Unknown DIARRHEA Unverified 07/21/20 17:59 Home Medications Medication Instructions Recorded Confirmed Type calcium carbonate 600 mg(1,500 1 tab PO DAILY tab 12/12/18 07/21/20 History mg)-vitamin D3 800 unit chewable tablet multivitamin 1 tab PO DAILY 12/12/18 07/21/20 History prednisone 5 mg tablet 5 mg PO DAILY #30 tab 12/12/18 07/21/20 Rx omeprazole 20 mg capsule,delayed 20 mg PO DAILY #90 cap 05/08/20 07/21/20 Rx release hydrochlorothiazide 25 mg PO DAILY 07/21/20 07/21/20 History potassium chloride 10 meq PO DAILY 07/21/20 07/21/20 History Past Med/Surg History Medical History Diverticulosis History of hyperlipidemia Lump of skin Osteoporosis Seronegative arthritis Tinea cruris Weight loss Surgical History History of cataract surgery History of total hysterectomy with no history of abnormal cervical Papanicolaou smear Hx of oral surgery Family History Mother Hypertension Father Lung cancer Sister Breast cancer Cancer Pancreatic cancer Other Colorectal cancer Myocardial infarction Denies family history of Ovarian cancer Prostate cancer Social History Smoking Status: Never smoker Hx Alcohol Use: No Hx Substance Use: No Beliefs That Will Affect Care: None marital status: / Current Living Situation: Family current occupational status: retired Feels Safe at Home: Yes Safety Concerns: Feels Safe At This Time caffeine: Yes Dental Care, Regularly: No Physical Activity Frequency: Does not Exercise Seatbelt Use: always Sunscreen Use: Yes Assistive Devices: Walker Review of Systems Review of Systems: Constitutional: denies fevers, chills, vomiting, fatigue, admits general weakness and night sweats (ongoing, no worse lately) Head: denies trauma, LOC ENT: denies rhinorrhea, stuffiness, sneezing, sore throat Cardiac: denies chest pain, palpitations, leg edema, PND, RICHARSD : denies pain, frequency, urgency Physical Exam Constitutional: well developed and well nourished; no acute distress Eyes: PERRL, conjunctivae normal, anicteric sclerae ENMT: Ears: + hearing impairment Nose: no external nose abnormality Mouth: no oropharynx abnormality and no tongue abnormality Throat: uvula midline Neck: normal visual inspection Respiratory: normal respiratory effort, lungs clear to auscultation Cardiovascular: RRR, no murmur, no edema Gastrointestinal (Abdomen): Inspection/Auscultation: abdomen normal to inspection Percussion/Palpation: abdomen soft; abdomen nontender, no guarding and abdomen not rigid Musculoskeletal: Extremities: + abnormal strength (3/5 left upper extremity at the shoulder, elbow 4/5 tub attendant and 4/5 b/l lower) Skin: no rashes, warm and dry Neurologic: CN's II-XI intact bilaterally (with the exception of hearing and weak L shrug), + focal motor deficit (left upper extremity weakness) and + confused Speech / Cognition: normal speech Motor/Sensory: normal movement Psychiatric: Orientation: alert Eye Contact: good eye contact Speech: normal rate/rhythm/volume of speech Affect: euthymic affect Results & Data Results & Data ([facility]) Vital Signs (Past 12 Hours) Vital Signs Temp Pulse Pulse Resp BP BP Pulse Ox 07/22/20 02:15 37 C 66 16 155/83 H 97 07/22/20 01:13 38.0 C H 75 17 159/90 H 93 07/21/20 23:28 79 20 172/97 H 95 07/21/20 22:30 78 18 157/83 H 07/21/20 22:00 76 18 155/85 H 07/21/20 21:30 75 18 163/102 H 96 07/21/20 20:33 37.6 C H 68 18 164/72 H 100 07/21/20 19:30 18 154/73 H 99 07/21/20 18:57 95 07/21/20 18:30 82 18 167/92 H 95 07/21/20 17:31 38.3 C H 87 18 170/88 H 95 CBC Results Results Complete Blood Count Results: RBC 4.37 M/uL (4.2-5.4) 07/22/20 WBC 12.14 K/uL (4.8-10.8) H 07/22/20 Hgb 13.2 g/dL (12.0-16.0) 07/22/20 Hct 38.9 % (37-47) 07/22/20 Plt Count 260 K/uL (130-400) 07/22/20 Chemistry (BMP) Results BMP Results: Sodium 139 mmol/L (136-145) 07/22/20 Potassium 3.2 mmol/L (3.5-5.1) L 07/22/20 Chloride 105 mmol/L (98-107) 07/22/20 BUN 16 mg/dl (7-18) 07/22/20 Creatinine 0.59 mg/dl (0.6-1.2) L 07/22/20 Glucose 123 mg/dl (70-99) H 07/22/20 Supervising Physician Co-Signing Physician Notes Attending addendum: I have physically seen this patient, have supervised the medical residents activities, and agree with the H&P unless as otherwise noted. Assessment and Plan: Generalized weakness/left upper extremity weakness- Stroke without TPA order set CT head negative. CTA read as possible fibromuscular dysplasia Consult PT/OT/speech/neurology Patient may require rehab post admission Mental status changes/metabolic encephalopathy associated with UTI- Follow urine culture and sensitivity Ceftriaxone 2 g IV daily COVID-19 positive- No active disease Has previously been vaccinated Remaining orders and notations as noted Resident Activity Tracking Resident Involvement: Resident Care Provided Care Provided: Adult Hospital Medicine
[2020-07-22 07:19] LABS: Basophils # (auto) 0.01 K/uL (0-0.2); Basophils % (auto) 0.1 %; Eosinophils % (auto) 2.5 %; Hematocrit (blood only) 38.9 % (37-47); Hemoglobin 13.2 g/dL (12.0-16.0); Immature Granulocytes # (auto) 0.03 K/uL (0.00-0.02); Immature Granulocytes % (auto) 0.2 %; Lymphocytes # (auto) 0.84 K/uL (1.2-3.4); Lymphocytes % (auto) 6.9 %; Mean Corpuscular Hemoglobin 30.2 pg (25-34); Mean Corpuscular Hgb Conc 33.9 g/dL (32-36); Mean Platelet Volume 10.2 fL (7.4-10.4); Monocytes # (auto) 1.06 K/uL (0.11-0.59); Monocytes % (auto) 8.7 %; Neutrophils % (auto) 81.6 %; Platelet Count 260 K/uL (130-400); RDW Coefficient of Variation 13.3 % (11.5-14.5); RDW Standard Deviation 43.4 fL (36.4-46.3); Red Blood Count 4.37 M/uL (4.2-5.4); White Blood Count 12.14 K/uL (4.8-10.8)
[2020-07-22 07:45] LABS: BUN Creatinine Ratio 26.5 (10-20); Calcium 8.6 mg/dl (8.5-10.1); Creatinine Clr Calc Pharmacy 49.2 ml/min; Est GFR (African American) 96.2; Potassium 3.2 mmol/L (3.5-5.1)
[2020-07-22] MEDS: PANTOprazole 40 MG TAB PO SCH (07:55)
[2020-07-22] MEDS: predniSONE 5 MG TAB PO SCH (07:55)
[2020-07-22] MEDS: POTASSIUM CHLORIDE 10 MEQ TABCR PO SCH (07:55)
[2020-07-22] MEDS: hydroCHLOROthiazide 25 MG TAB PO SCH (07:55)
[2020-07-22 08:27] LABS: Estimated Average Glucose 186 mg/dl; Hemoglobin A1C 8.1 % (4.5-5.6)
--- NOTE | 2020-07-22 14:09 | XRay Report ---
LEFT SHOULDER 3 VIEWS CLINICAL HISTORY: Left arm weakness. FINDINGS: 3 portable views of the left shoulder are obtained. No prior studies are available for jose mao at the time of dictation. The skeletal structures are osteopenic. There is no radiographic adelina dence of fracture or dislocation. Productive degenerative change is seen at the acromioclavicular lucy nt. The glenohumeral articulation is preserved. The overlying soft tissues are normal as imaged. The left lung parenchyma is clear as visualized. Atherosclerotic calcification is noted in the thoracic a mitra. IMPRESSION: No acute bony abnormality is identified. Electronically signed by: Bert Thomas M.D. 07/22/2020 2:08 PM
--- NOTE | 2020-07-22 14:12 | Neurology Consultation ---
Date of Consultation July 22, 2020 Assessment & Plan (1) COVID-19: (2) Weakness: Elise Levy is an 85 yo woman w/ PMH of HTN, HLD, memory impairment, dizziness, unsteady gait and arthritis who p/t [facility] after onset of generalized weakness worse in the LUE in the setting of COVID+. Symptom localization: possibly right internal capsule or thalamus c/b underlying/baseline gait abnormality that has been present for at least one year per records Stroke mechanism: lacunar/lipohyalinosis Stroke WorkUp: - CT head: shows no hemorrhage or hypodensity, mild to moderate generalized atrophy, mild SVID - CTA head/neck: shows mild bilateral ICA stenosis with associated calcified plaque at the bifurcation, mild to moderate left vertebral artery stenosis associated with calcified plaque in the V2 section, no LVO, high-grade stenosis or aneurysm noted; possible fibromuscular dysplasia with beaded appearance of bilateral carotids - MRI brain: pending - TTE: pending (if stroke noted on MRI) - Telemetry: pending - A1c: 8.1 - FLP: 88 - Troponin, TSH: negative, WNL Stroke Management: - Acute treatment: ASA - Continuous cardiac monitoring, will consider Holter monitor as outpatient if telemetry here unrevealing - Vitals, Neurochecks, NIHSS per unit routine - BP parameters: SBP CAP 180, continue home anti-hypertensives for goal normotension - Obtain MRI brain to evaluate stroke burden - Complete ischemic stroke workup with TTE without bubble - Consult speech, PT, OT for supportive management - Will credit support counselor concerning stroke education, smoking cessation, healthy diet, physical activity, weight loss - Follow up with PCP for assistance with outpatient goals (BP <130/80, LDL <70, A1c <7) - Follow up in neurology clinic in 6-8 weeks with NIGHAT Cotton - Should have an outpatient DSA to confirm diagnosis of FMD; if confirmed, should have one time CT C/A/P to r/o aneurysm/renal artery stenosis Secondary Stroke Prevention: - Antiplatelet: ASA 81mg po daily or plavix 75mg daily (if unable to tolerate ASA); should be on AP given fibromuscular dysplasia - Anticoagulation: Not indicated at this time - Statin: Atorvastatin 20mg daily HTN: - BP parameters, as above - Restart home medications with goal of lowering BP to normotension over next 3- 4 days FEN/GI: - Diet: Cardiac HH diet and PO meds given absence of bulbar signs or symptoms - Monitor lytes and replete PRN Glucose Control: - Sliding scale insulin and accuchecks per primary team to avoid hyperglycemia Thank you for this interesting consult. Plan of care was discussed with primary team. Please call with any questions. (3) Unsteady gait: (4) Hypertension: (5) Diabetes: History of Present Illness Attending Physician: David Mendoza MD History of Present Illness Elise Levy is an 85 yo woman w/ PMH of HTN, HLD, memory impairment, dizziness, unsteady gait and arthritis who p/t [facility] after onset of generalized weakness worse in the LUE in the setting of COVID+. In the ED, she was febrile to 38.3, BP 170/88, heart rate 87, satting 95% room air. Labs notable for WBC 15.28, hemoglobin 14.2 with MCV 88.1, platelets 285, sodium 136, potassium low at 3.2, creatinine 0.73, glucose elevated 195, LFTs within normal, troponin negative, TSH within normal, lactate 1.3, UA possible UTI, Covid positive. Imaging independently reviewed. CT head shows no hemorrhage or hypodensity, mild to moderate generalized atrophy, mild SVID. CTA head and neck shows mild bilateral ICA stenosis with associated calcified plaque at the bifurcation, mild to moderate left vertebral artery stenosis associated with calcified plaque in the V2 section, no LVO, high-grade stenosis or aneurysm noted; possible fibromuscular dysplasia with beaded appearance of bilateral carotids. 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 Allergies Allergy/AdvReac Type Severity Reaction Status Date / Time metformin AdvReac Mild diarrhea Verified 07/21/20 17:59 aspirin AdvReac Unknown DIARRHEA Unverified 07/21/20 17:59 Penicillins AdvReac Unknown DIARRHEA Unverified 07/21/20 17:59 Home Medications Medication Instructions Recorded Confirmed Type calcium carbonate 600 mg(1,500 1 tab PO DAILY tab 12/12/18 07/21/20 History mg)-vitamin D3 800 unit chewable tablet multivitamin 1 tab PO DAILY 12/12/18 07/21/20 History prednisone 5 mg tablet 5 mg PO DAILY #30 tab 12/12/18 07/21/20 Rx omeprazole 20 mg capsule,delayed 20 mg PO DAILY #90 cap 05/08/20 07/21/20 Rx release hydrochlorothiazide 25 mg PO DAILY 07/21/20 07/21/20 History potassium chloride 10 meq PO DAILY 07/21/20 07/21/20 History Patient History Medical History Diverticulosis History of hyperlipidemia Lump of skin Osteoporosis Seronegative arthritis Tinea cruris Weight loss Surgical History History of cataract surgery History of total hysterectomy with no history of abnormal cervical Papanicolaou smear Hx of oral surgery Family History Mother Hypertension Father Lung cancer Sister Breast cancer Cancer Pancreatic cancer Other Colorectal cancer Myocardial infarction Denies family history of Ovarian cancer Prostate cancer Social History Smoking Status: Never smoker Hx Alcohol Use: No Hx Substance Use: No Beliefs That Will Affect Care: None marital status: / Current Living Situation: Family current occupational status: retired Feels Safe at Home: Yes Safety Concerns: Feels Safe At This Time caffeine: Yes Dental Care, Regularly: No Physical Activity Frequency: Does not Exercise Seatbelt Use: always Sunscreen Use: Yes Assistive Devices: Walker Review of Systems Review of Systems: 10 point review of systems completed and negative except as in HPI. Exam (Neuro) Physical Exam: General Exam: (per primary team) GEN: NAD, lying down in examination bed. HEENT: No conjunctival injection, no rhinorrhea. CV: RRR on monitor PULM: Nonlabored respirations on room air. Neuro Exam: MS: Awake and Alert. Oriented to person, place, and date. Speech fluent and appropriate without dysarthria or paraphasic errors. Cognition and memory mildly impaired. CN: EOMI without nystagmus. Facial muscles full and symmetric. Hard of hearing. MOTOR: Normal bulk and tone. No pronator drift. All extremities antigravity without noticeable drift (4-/5 LUE, 4 to 4+/5 in RUE, BLEs 5-/5) SENSORY: Intact to LT throughout, no extinction to double simultaneous stimuli. COORDINATION: No dysmetria or ataxia on [id number] bilaterally. GAIT: Deferred due to physical status. NIH STROKE SCALE 1A. Level of Consciousness (0-3) = 0 1B. LOC Questions (0-2) = 0 1C. LOC Commands (0-2) = 0 2. Best Horizontal Gaze (0-2) = 0 3. Visual Millan (0-3) = 0 4. Facial Palsy (0-3) = 0 5. Motor Arm Right (0-4) = 0 Left (0-4) = 0 6. Motor Leg Right (0-4) = 0 Left (0-4) = 0 7. Limb Ataxia (0-2) = 0 8. Sensory (0-2) = 0 9. Best Language (0-3) = 0 10. Dysarthria (0-2) = 0 11. Extinction and Inattention (0-2) = 0 NIHSS TOTAL = 0 Results & Data ([facility]) Vital Signs (Past 12 Hours) Vital Signs Temp Pulse Pulse Resp BP Pulse Ox 07/22/20 11:26 36.6 C 65 16 133/64 93 07/22/20 07:41 36.8 C 80 16 165/82 H 95 07/22/20 05:06 65 07/22/20 02:15 37 C 66 16 155/83 H 97 PG Care Time/CCT Total # of Minutes Spent Total Time Spent with Patient: Total time spent is greater than 50% in c oordination of care (as documented) at patient's floor/unit and/or counseling patient: 45 Coding Level of Care Code 52513 Initial Inpt Care Lvl 2 Diagnoses COVID-19 U07.1 Weakness R53.1 Unsteady gait R26.81 Hypertension I10 Diabetes E11.9
--- NOTE | 2020-07-22 16:44 | History & Physical Bridge Note ---
Date of Service July 22, 2020 History & Physical Bridge Note Patient was seen and examined today. Slight weakness in the left arm, though the patient reports this is improving. - Discussed with neurology -> Will get MRI to see if actual stroke. Fibromuscular dysplagia can cause TIA & CVA, so this is diagnosis at present.
[2020-07-23] MEDS: cefTRIAXone SODIUM 1,000 MG in DEXTROSE 5% 50 ML IV SCH (03:04)
--- NOTE | 2020-07-23 05:56 | Billing Data ---
Date of Service July 23, 2020 Coding Level of Care Code 76329 Initial Inpt Care Lvl 3
--- NOTE | 2020-07-23 06:07 | Electrocardiogram Report ---
Test Reason : Blood Pressure : / mmHG Vent. Rate : 082 BPM Atrial Rate : 082 BPM P-R Int : 164 ms QRS Dur : 084 ms QT Int : 342 ms P-R-T Axes : 043 -18 140 degrees QTc Int : 399 ms Normal sinus rhythm Left ventricular hypertrophy with repolarization abnormality Abnormal ECG No previous ECGs available Confirmed by Tonny Abel ([id number]) on 07/23/2020 6:06:33 AM Referred By: REFERRED SELF Confirmed By:Tonny Abel
[2020-07-23 06:44] LABS: Basophils # (auto) 0.03 K/uL (0-0.2); Basophils % (auto) 0.3 %; Eosinophils # (auto) 0.45 K/uL (0-0.5); Eosinophils % (auto) 4.2 %; Hematocrit (blood only) 36.2 % (37-47); Hemoglobin 12.6 g/dL (12.0-16.0); Immature Granulocytes # (auto) 0.02 K/uL (0.00-0.02); Immature Granulocytes % (auto) 0.2 %; Lymphocytes # (auto) 0.72 K/uL (1.2-3.4); Lymphocytes % (auto) 6.6 %; Mean Corpuscular Hemoglobin 30.6 pg (25-34); Mean Corpuscular Hgb Conc 34.8 g/dL (32-36); Mean Corpuscular Volume 87.9 fL (80-100); Mean Platelet Volume 9.8 fL (7.4-10.4); Monocytes # (auto) 0.61 K/uL (0.11-0.59); Monocytes % (auto) 5.6 %; Neutrophils % (auto) 83.1 %; Platelet Count 261 K/uL (130-400); RDW Coefficient of Variation 13.3 % (11.5-14.5); RDW Standard Deviation 42.7 fL (36.4-46.3); Red Blood Count 4.12 M/uL (4.2-5.4); White Blood Count 10.83 K/uL (4.8-10.8)
[2020-07-23 07:20] LABS: BUN Creatinine Ratio 24.4 (10-20); Calcium 8.6 mg/dl (8.5-10.1); Creatinine Clr Calc Pharmacy 49.2 ml/min; Est GFR (African American) 96.2; Potassium 2.8 mmol/L (3.5-5.1)
[2020-07-23] MEDS: hydroCHLOROthiazide 25 MG TAB PO SCH (07:55)
[2020-07-23] MEDS: POTASSIUM CHLORIDE 10 MEQ TABCR PO SCH (07:55)
[2020-07-23] MEDS: predniSONE 5 MG TAB PO SCH (07:55)
[2020-07-23] MEDS: PANTOprazole 40 MG TAB PO SCH (07:55)
--- NOTE | 2020-07-23 16:09 | Hospitalist Progress Note ---
Date of Service July 23, 2020 Assessment & Plan (1) Weakness: Possible CVA. CTA neck on 07/21 showed possible fibromuscular dysplasia with beaded appearance of bilateral carotids. - MRI pending - Consider diagnostic angiogram at [place] - Neurology following - Echo in 2 weeks after Covid - Follow up in neurology clinic in 6-8 weeks - Start ASA; monitor for diarrhea - If no CVA on MRI, will consider ortho consult as her weakness seems to relate to rotator cuff abduction. (2) COVID-19: Already vaccinated > 2 weeks ago. - Asymptomatic - No treatment needed (3) Diabetes: A1c was 8.1% this admission. Not on any home meds - Sliding scale insulin -> Sugars under poor control, possibly due to her chronic steroids. (4) Hypertension: BP today is 140/70. Goal < 130/80. - Continue home HCTZ with potassium (5) DVT prophylaxis: Lovenox 40 mg SQ daily Admission and Anticipated Discharge Date Admission Date: July 21, 2020 Subjective Feels ok today. Feel left arm is stable from yesterday. Physical Exam Constitutional: WD/WN, vitals as above Eyes: EOM intact bilaterally; no conjunctival abnormality ENMT: external ear and nose normal, oropharynx normal Neck: trachea midline, no thyromegaly normal visual inspection Respiratory: normal respiratory effort, lungs clear to auscultation no respiratory distress Cardiovascular: RRR, no murmur, no edema Gastrointestinal (Abdomen): Inspection/Auscultation: abdomen normal to inspection; abdomen not distended Skin: no rashes, warm and dry Neurologic: moves all extremities and awake Speech / Cognition: normal speech Coordination: + abnormal ksir-jt-tigg test (Slightly worse with left foot); normal azouwf-yk-hldj test Shoulder abduction weak Psychiatric: Orientation: alert, oriented to person and cooperative Results & Data Results & Data ([facility]) Vital Signs (Past 12 Hours) Vital Signs Temp Pulse Resp BP BP Pulse Ox 07/23/20 14:29 36.8 C 61 20 140/68 95 07/23/20 12:11 36.9 C 59 L 20 154/77 H 93 07/23/20 08:14 37.0 C 67 20 157/74 H 94 07/23/20 07:00 36.7 C 63 18 178/77 H 96 07/23/20 04:11 36.8 C 70 18 171/83 H 94 PG Care Time/CCT Total # of Minutes Spent Total Time Spent with Patient: Total time spent is greater than 50% in coordination of care (as documented) at patient's floor/unit and/or counseling patient: Coding Level of Care Code 94845 Subseq Hosp Care Lvl 2 Diagnoses Weakness R53.1 COVID-19 U07.1 Diabetes E11.9 Hypertension I10 DVT prophylaxis Z29.9
[2020-07-23] MEDS ORDERED: POTASSIUM CHLORIDE CRTAB 20 MEQ TABCR PO STA (16:15)
--- NOTE | 2020-07-23 17:46 | Magnetic Resonance Report ---
MRI OF THE BRAIN WITHOUT CONTRAST CLINICAL HISTORY: Upper extremity weakness. r/o stroke, with GRE sequence COMPARISON STUDY: Head CT and CTA of the head July 21, 2020. TECHNIQUE: Utilizing a 1.5 Kadie magnet and dedicated coil, multiplanar, multiecho imaging of the bra in was performed without IV contrast. FINDINGS: This exam is mildly compromised by artifact. This study is diagnostic. There are no foci of restricted diffusion to suggest acute infarct. No acute intracranial hemorrhage, midline shift or ma ss effect is present. There is moderate atrophy. This accounts for ventricular dilatation. Basilar ci sterns are patent. There are no extra-axial collections. White matter T2 hyperintense foci suggest mo derate small vessel disease. No intracranial mass is identified on this unenhanced exam. No foci of s usceptibility artifact are identified on the gradient echo sequence. Calvarial signal is normal. Note is made of an old 1.7 cm infarct within the right cerebellar hemisphere. IMPRESSION: 1. No acute intracranial findings. 2. Moderate atrophy and small vessel disease. 3. 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 ACT 112: Negative or not required by law. Electronically signed by: Ifeanyi Lancaster M.D. 07/23/2020 5:45 PM
[2020-07-24] MEDS: cefTRIAXone SODIUM 1,000 MG in DEXTROSE 5% 50 ML IV SCH (02:58)
[2020-07-24 05:55] LABS: Basophils # (auto) 0.03 K/uL (0-0.2); Basophils % (auto) 0.4 %; Eosinophils # (auto) 0.66 K/uL (0-0.5); Eosinophils % (auto) 8.5 %; Hematocrit (blood only) 36.3 % (37-47); Hemoglobin 12.5 g/dL (12.0-16.0); Immature Granulocytes # (auto) 0.03 K/uL (0.00-0.02); Immature Granulocytes % (auto) 0.4 %; Lymphocytes # (auto) 0.68 K/uL (1.2-3.4); Lymphocytes % (auto) 8.7 %; Mean Corpuscular Hemoglobin 30.4 pg (25-34); Mean Corpuscular Hgb Conc 34.4 g/dL (32-36); Mean Corpuscular Volume 88.3 fL (80-100); Mean Platelet Volume 9.7 fL (7.4-10.4); Monocytes % (auto) 7.7 %; Neutrophils % (auto) 74.3 %; Platelet Count 263 K/uL (130-400); RDW Standard Deviation 42.1 fL (36.4-46.3); Red Blood Count 4.11 M/uL (4.2-5.4)
[2020-07-24 06:28] LABS: BUN Creatinine Ratio 20.2 (10-20); Calcium 8.6 mg/dl (8.5-10.1); Creatinine Clr Calc Pharmacy 50.9 ml/min; Est GFR (African American) 97.3; Est GFR (Non-African American) 83.9; Magnesium 1.8 mg/dl (1.8-2.4); Potassium 3.4 mmol/L (3.5-5.1)
[2020-07-24] MEDS: ATORVASTATIN 20 MG TAB PO SCH (08:23)
[2020-07-24] MEDS: lisinopril 5 MG TAB PO SCH (08:23)
[2020-07-24] MEDS: PANTOprazole 40 MG TAB PO SCH (08:23)
[2020-07-24] MEDS: ASPIRIN 81 MG ECTAB PO SCH (08:23)
[2020-07-24] MEDS: ENOXAPARIN INJ 40 MG/0.4 ML SYR SQ SCH (08:24)
[2020-07-24] MEDS: POTASSIUM CHLORIDE 10 MEQ TABCR PO SCH (10:16)
[2020-07-24] MEDS: predniSONE 5 MG TAB PO SCH (10:16)
[2020-07-24] MEDS: hydroCHLOROthiazide 25 MG TAB PO SCH (10:16)
--- NOTE | 2020-07-24 13:33 | Hospitalist Progress Note ---
Date of Service July 24, 2020 Assessment & Plan (1) Weakness: CVA ruled out on 07/23 with MRI. CTA neck on 07/21 showed possible fibromuscular dysplasia with beaded appearance of bilateral carotids. - Consider diagnostic angiogram at [place] for FMD. - Neurology following - Echo in 2 weeks after Covid - Follow up in neurology clinic in 6-8 weeks - Started ASA; monitor for diarrhea - Started atorvastatin - Since no acute CVA on MRI, ordered ortho consult as her weakness seems to relate to rotator cuff abduction. Will work with PT/OT as well. (2) UTI (urinary tract infection): With leukocytosis on admission. - Continued ceftriaxone x 3 days (Last day: 07/24/2020) (3) COVID-19: Already vaccinated > 2 weeks ago. - Asymptomatic - No treatment needed (4) Diabetes: A1c was 8.1% this admission. Not on any home meds - Sliding scale insulin -> Sugars under poor control, possibly due to her chronic steroids. (5) Hypertension: BP today is 140/70. Goal < 130/80. - Continue home HCTZ with potassium - Started lisinopril on 07/24 (6) Seronegative arthritis: Follows with Dr. Jameson. - Continue home prednisone 5 mg PO daily (7) DVT prophylaxis: Lovenox 40 mg SQ daily Admission and Anticipated Discharge Date Admission Date: July 21, 2020 Subjective Feels ok today. Feel left arm is stable from yesterday. Is getting impatient to go home. Reports no fevers/chills, chest pain, shortness of breath, abdominal pain, nausea, or vomiting. Physical Exam Constitutional: WD/WN, vitals as above Eyes: EOM intact bilaterally; no conjunctival abnormality ENMT: external ear and nose normal, oropharynx normal Neck: trachea midline, no thyromegaly normal visual inspection Respiratory: normal respiratory effort, lungs clear to auscultation no respiratory distress Cardiovascular: RRR, no murmur, no edema Gastrointestinal (Abdomen): Inspection/Auscultation: abdomen normal to inspection; abdomen not distended Skin: no rashes, warm and dry Neurologic: moves all extremities and awake Speech / Cognition: normal speech Coordination: + abnormal xbkr-xd-elhe test (Slightly worse with left foot); normal loutnp-xq-nzos test Psychiatric: Orientation: alert, oriented to person and cooperative Results & Data Results & Data ([facility]) Vital Signs (Past 12 Hours) Vital Signs Temp Pulse Pulse Resp BP Pulse Ox 07/24/20 10:35 37 C 70 18 162/70 H 94 07/24/20 08:33 168/72 H 07/24/20 07:59 57 L 07/24/20 07:15 36.8 C 65 22 95 07/24/20 03:34 37.1 C 54 L 20 159/68 H 92 PG Care Time/CCT Total # of Minutes Spent Total Time Spent with Patient: Total time spent is greater than 50% in coordination of care (as documented) at patient's floor/unit and/or counseling patient: Coding Level of Care Code 75576 Subseq Hosp Care Lvl 3 Diagnoses Weakness R53.1 UTI (urinary tract infection) N39.0 COVID-19 U07.1 Diabetes E11.9 Hypertension I10 Seronegative arthritis M13.80 DVT prophylaxis Z29.9
[2020-07-24] MEDS ORDERED: POTASSIUM CHLORIDE CRTAB 20 MEQ TABCR PO STA (13:46)
--- NOTE | 2020-07-24 14:47 | Orthopedic Consultation ---
Date of Consultation July 24, 2020 Assessment & Plan (1) Chronic left shoulder pain: She has had an acute flareup of her chronic left shoulder pain over the past week. This is a frequent occurrence for her. Based on her history, exam, and x-rays, I suspect that she has a large atraumatic rotator cuff tear in her right shoulder, and she is developing rotator cuff tear arthropathy. I would recommend follow-up in our clinic on an outpatient basis. With her recent Covid diagnosis, she can follow-up with me (Dr. Navarro) at [facility] in at least 2 to 3 weeks for further evaluation and treatment of this left shoulder pain if it is still bothersome to her. Call [phone] to make an appointment. Present on Admission?: Yes History of Present Illness Reason for Consultation: Left shoulder pain and weakness Attending Physician: David Mendoza MD History of Present Illness Ms. Levy is an 85-year old female who has been having pain and weakness in her left shoulder for about the past 3 years with intermittent flareups of her pain, each lasting roughly 7 to 10 days. She just had another acute flareup of this left shoulder pain and weakness over the past week or so. She has never had any evaluation or treatment of this chronic shoulder pain and weakness in the past, such as therapy or injections. She has pain down the anterior lateral aspect of her shoulder, especially with overhead motions. She has difficulty with raising her arm above shoulder level. She denies any recent or remote injury to that left shoulder. Allergies Allergy/AdvReac Type Severity Reaction Status Date / Time metformin AdvReac Mild diarrhea Verified 07/21/20 17:59 aspirin AdvReac Unknown DIARRHEA Unverified 07/21/20 17:59 Penicillins AdvReac Unknown DIARRHEA Unverified 07/21/20 17:59 Home Medications Medication Instructions Recorded Confirmed Type calcium carbonate 600 mg(1,500 1 tab PO DAILY tab 12/12/18 07/21/20 History mg)-vitamin D3 800 unit chewable tablet multivitamin 1 tab PO DAILY 12/12/18 07/21/20 History prednisone 5 mg tablet 5 mg PO DAILY #30 tab 12/12/18 07/21/20 Rx omeprazole 20 mg capsule,delayed 20 mg PO DAILY #90 cap 05/08/20 07/21/20 Rx release hydrochlorothiazide 25 mg PO DAILY 07/21/20 07/21/20 History potassium chloride 10 meq PO DAILY 07/21/20 07/21/20 History Patient History Medical History Diverticulosis History of hyperlipidemia Lump of skin Osteoporosis Seronegative arthritis Tinea cruris Weight loss Surgical History History of cataract surgery History of total hysterectomy with no history of abnormal cervical Papanicolaou smear Hx of oral surgery Family History Mother Hypertension Father Lung cancer Sister Breast cancer Cancer Pancreatic cancer Other Colorectal cancer Myocardial infarction Denies family history of Ovarian cancer Prostate cancer Social History Smoking Status: Never smoker Hx Alcohol Use: No Hx Substance Use: No Communication Ability: Effective Beliefs That Will Affect Care: None marital status: / Current Living Situation: Family current occupational status: retired Feels Safe at Home: Yes Safety Concerns: Feels Safe At This Time caffeine: Yes Dental Care, Regularly: No Physical Activity Frequency: Does not Exercise Seatbelt Use: always Sunscreen Use: Yes Assistive Devices: Walker Physical Exam Physical Exam: Examination of the left shoulder shows globally weak rotator cuff strength. She can only actively abduct up to about 95 degrees. Results & Data ([facility]) Vital Signs (Past 12 Hours) Vital Signs Temp Pulse Pulse Resp BP Pulse Ox 07/24/20 10:35 37 C 70 18 162/70 H 94 07/24/20 08:33 168/72 H 07/24/20 07:59 57 L 07/24/20 07:15 36.8 C 65 22 95 07/24/20 03:34 37.1 C 54 L 20 159/68 H 92 Diagnostic Findings Left shoulder x-rays were reviewed. Minimal glenohumeral joint arthritis, but she does have remodeling changes at the greater tuberosity and undersurface of the acromion consistent with superior migration of the humeral head and rotator cuff tear arthropathy.
[2020-07-25 06:04] LABS: Hematocrit (blood only) 38.4 % (37-47); Hemoglobin 13.5 g/dL (12.0-16.0); Mean Corpuscular Hemoglobin 31.1 pg (25-34); Mean Corpuscular Hgb Conc 35.2 g/dL (32-36); Mean Corpuscular Volume 88.5 fL (80-100); Mean Platelet Volume 9.7 fL (7.4-10.4); Platelet Count 307 K/uL (130-400); RDW Coefficient of Variation 13.1 % (11.5-14.5); RDW Standard Deviation 42.4 fL (36.4-46.3); Red Blood Count 4.34 M/uL (4.2-5.4); White Blood Count 6.97 K/uL (4.8-10.8)
[2020-07-25 06:23] LABS: BUN Creatinine Ratio 23.4 (10-20); Calcium 8.8 mg/dl (8.5-10.1); Creatinine Clr Calc Pharmacy 45.3 ml/min; Est GFR (African American) 93.6; Est GFR (Non-African American) 80.8; Magnesium 2.1 mg/dl (1.8-2.4); Potassium 3.8 mmol/L (3.5-5.1)
[2020-07-25] MEDS: ATORVASTATIN 20 MG TAB PO SCH (07:48)
[2020-07-25] MEDS: lisinopril 5 MG TAB PO SCH (07:48)
[2020-07-25] MEDS: POTASSIUM CHLORIDE 10 MEQ TABCR PO SCH (07:48)
[2020-07-25] MEDS: ASPIRIN 81 MG ECTAB PO SCH (07:48)
[2020-07-25] MEDS: hydroCHLOROthiazide 25 MG TAB PO SCH (07:48)
[2020-07-25] MEDS: predniSONE 5 MG TAB PO SCH (07:48)
[2020-07-25] MEDS: PANTOprazole 40 MG TAB PO SCH (07:49)
[2020-07-25] MEDS: ENOXAPARIN INJ 40 MG/0.4 ML SYR SQ SCH (07:49)
[2020-07-25] MEDS ORDERED: CARBOHYDRATES FOR HYPOGLYCEMIA PO PRN (12:39)
[2020-07-25] MEDS ORDERED: DEXTROSE 50% 50 ML SYRINGE IV PRN (12:39)
[2020-07-25] MEDS ORDERED: GLUCOSE 10 TABS/TUBE PO PRN (12:39)
[2020-07-25] MEDS ORDERED: GLUCAGON FOR INJ 1 MG VIAL SQ PRN (12:39)
[2020-07-25] MEDS ORDERED: GLUCOSE 40% GEL 15 GM TUBE PO PRN (12:39)
--- NOTE | 2020-07-25 12:39 | Hospitalist Progress Note ---
Date of Service July 25, 2020 Assessment & Plan (1) Weakness: CVA ruled out on 07/23 with MRI. CTA neck on 07/21 showed possible fibromuscular dysplasia with beaded appearance of bilateral carotids. - Consider diagnostic angiogram at [place] for FMD. - Neurology following - Echo in 2 weeks after Covid - Follow up in neurology clinic in 6-8 weeks - Started ASA; monitor for diarrhea - Started atorvastatin - Since no acute CVA on MRI, ordered ortho consult. Will see her for chronic left rotator cuff arthropathy in 2 weeks after Covid. - Likely leg weakness is deconditioning and/or old infarct. Plan for rehab. (2) UTI (urinary tract infection): With leukocytosis on admission. - Continued ceftriaxone x 3 days (Last day: 07/24/2020) (3) COVID-19: Already vaccinated > 2 weeks ago. - Asymptomatic - No treatment needed - Family requests re-testing. (4) Diabetes: A1c was 8.1% this admission. Not on any home meds - Sliding scale insulin -> Sugars under poor control, possibly due to her chronic steroids. (5) Hypertension: BP today is 170/70. Goal < 130/80. Has been much lower throughout stay, so not sure why they are higher today. - Continue home HCTZ with potassium - Started lisinopril on 07/24 -> Increase dose to 20 mg for tomorrow. (6) Seronegative arthritis: Follows with Dr. Jameson. - Continue home prednisone 5 mg PO daily (7) DVT prophylaxis: Lovenox 40 mg SQ daily Admission and Anticipated Discharge Date Admission Date: July 21, 2020 Subjective No change today. Left arm doesn't hurt too much today. Reports no fevers/chills, chest pain, shortness of breath, abdominal pain, nausea, or vomiting. Physical Exam Constitutional: WD/WN, vitals as above Eyes: EOM intact bilaterally; no conjunctival abnormality ENMT: external ear and nose normal, oropharynx normal Neck: trachea midline, no thyromegaly normal visual inspection Respiratory: normal respiratory effort, lungs clear to auscultation no respiratory distress Cardiovascular: RRR, no murmur, no edema Gastrointestinal (Abdomen): Inspection/Auscultation: abdomen normal to inspection; abdomen not distended Skin: no rashes, warm and dry Neurologic: moves all extremities and awake Speech / Cognition: normal speech Psychiatric: Orientation: alert, oriented to person and cooperative Results & Data Results & Data ([facility]) Vital Signs (Past 12 Hours) Vital Signs Temp Pulse Pulse Resp BP BP Pulse Ox 07/25/20 11:51 37.0 C 65 16 170/67 H 96 07/25/20 10:01 56 L 07/25/20 09:14 170/81 H 07/25/20 08:06 37.0 C 74 20 205/77 H 194/105 H 95 07/25/20 05:03 58 L 07/25/20 04:59 178/81 H 07/25/20 04:45 37.1 C 64 22 193/77 H 95 PG Care Time/CCT Total # of Minutes Spent Total Time Spent with Patient: Total time spent is greater than 50% in coordination of care (as documented) at patient's floor/unit and/or counseling patient: Coding Level of Care Code 52899 Subseq Hosp Care Lvl 2 Diagnoses Weakness R53.1 UTI (urinary tract infection) N39.0 COVID-19 U07.1 Diabetes E11.9 Hypertension I10 Seronegative arthritis M13.80 DVT prophylaxis Z29.9
[2020-07-25] MEDS: INSULIN ASPART 100 UNITS/ML 3 ML PEN SC SCH ×2 (16:51→20:39)
[2020-07-25] MEDS: lisinopril 20 MG TAB PO SCH (20:34)
[2020-07-26] MEDS: POTASSIUM CHLORIDE 10 MEQ TABCR PO SCH (09:26)
[2020-07-26] MEDS: predniSONE 5 MG TAB PO SCH (09:26)
[2020-07-26] MEDS: ATORVASTATIN 20 MG TAB PO SCH (09:26)
[2020-07-26] MEDS: ENOXAPARIN INJ 40 MG/0.4 ML SYR SQ SCH (09:26)
[2020-07-26] MEDS: hydroCHLOROthiazide 25 MG TAB PO SCH (09:26)
[2020-07-26] MEDS: ASPIRIN 81 MG ECTAB PO SCH (09:26)
[2020-07-26] MEDS: PANTOprazole 40 MG TAB PO SCH (09:26)
[2020-07-26] MEDS: INSULIN ASPART 100 UNITS/ML 3 ML PEN SC SCH ×4 (09:30→20:12)
[2020-07-26 09:33] LABS: Hematocrit (blood only) 41.4 % (37-47); Hemoglobin 14.2 g/dL (12.0-16.0); Mean Corpuscular Hemoglobin 30.7 pg (25-34); Mean Corpuscular Hgb Conc 34.3 g/dL (32-36); Mean Corpuscular Volume 89.6 fL (80-100); Mean Platelet Volume 9.9 fL (7.4-10.4); Platelet Count 323 K/uL (130-400); RDW Standard Deviation 42.2 fL (36.4-46.3); Red Blood Count 4.62 M/uL (4.2-5.4); White Blood Count 8.03 K/uL (4.8-10.8)
[2020-07-26 09:51] LABS: BUN Creatinine Ratio 21.4 (10-20); Calcium 9.1 mg/dl (8.5-10.1); Creatinine Clr Calc Pharmacy 37.2 ml/min; Est GFR (African American) 79.8; Est GFR (Non-African American) 68.8
[2020-07-26] MEDS: lisinopril 20 MG TAB PO SCH (21:10)
--- NOTE | 2020-07-26 22:04 | Hospitalist Progress Note ---
Date of Service July 26, 2020 Assessment & Plan (1) Weakness: CVA ruled out on 07/23 with MRI. CTA neck on 07/21 showed possible fibromuscular dysplasia with beaded appearance of bilateral carotids. - Consider diagnostic angiogram at [place] for FMD. - Neurology following - Echo in 2 weeks after Covid - Follow up in neurology clinic in 6-8 weeks - Started ASA; monitor for diarrhea - Started atorvastatin - Since no acute CVA on MRI, ordered ortho consult. Will see her for chronic left rotator cuff arthropathy in 2 weeks after Covid. - Likely leg weakness is deconditioning and/or old infarct. Plan for rehab. Awaiting for placement. (2) UTI (urinary tract infection): With leukocytosis on admission. - Continued ceftriaxone x 3 days (Last day: 07/24/2020) (3) COVID-19: Already vaccinated > 2 weeks ago. - Asymptomatic - No treatment needed - Family requests re-testing. (4) Diabetes: A1c was 8.1% this admission. Not on any home meds - Sliding scale insulin -> Sugars under poor control, possibly due to her chronic steroids. (5) Hypertension: BP today is 170/70. Goal < 130/80. Has been much lower throughout stay, so not sure why they are higher today. - Continue home HCTZ with potassium - Started lisinopril on 07/24 -> Increase dose to 20 mg for tomorrow. (6) Seronegative arthritis: Follows with Dr. Jameson. - Continue home prednisone 5 mg PO daily (7) DVT prophylaxis: Lovenox 40 mg SQ daily Admission and Anticipated Discharge Date Admission Date: July 21, 2020 Subjective 85 yo female has no new complaints. Review of Systems Review of Systems: All systems reviewed & are unremarkable except as noted in HPI & below Physical Exam Physical Exam: Constitutional: WD/WN, vitals as above Eyes: EOM intact bilaterally; no conjunctival abnormality ENMT: external ear and nose normal, oropharynx normal Neck: trachea midline, no thyromegaly normal visual inspection Respiratory: normal respiratory effort, lungs clear to auscultation no respiratory distress Cardiovascular: RRR, no murmur, no edema Gastrointestinal (Abdomen): Inspection/Auscultation: abdomen normal to inspection; abdomen not distended Skin: no rashes, warm and dry Neurologic: moves all extremities and awake Speech / Cognition: normal speech Psychiatric: Orientation: alert, oriented to person and cooperative Results & Data Results & Data ([facility]) Vital Signs (Past 12 Hours) Vital Signs Temp Pulse Pulse Resp BP BP Pulse Ox 07/26/20 21:07 175/71 H 07/26/20 20:18 36.8 C 64 18 149/73 H 94 07/26/20 16:08 36.7 C 67 18 142/76 H 97 07/26/20 15:04 64 07/26/20 12:00 36.6 C 62 16 179/87 H 95 PG Care Time/CCT Total # of Minutes Spent Total Time Spent with Patient: Total time spent is greater than 50% in coordination of care (as documented) at patient's floor/unit and/or counseling patient: Coding Level of Care Code 78611 Subseq Hosp Care Lvl 2 Diagnoses Weakness R53.1 UTI (urinary tract infection) N39.0 COVID-19 U07.1 Diabetes E11.9 Hypertension I10 Seronegative arthritis M13.80 DVT prophylaxis Z29.9 Time Spent (min) 25
[2020-07-27] MEDS: predniSONE 5 MG TAB PO SCH (07:55)
[2020-07-27] MEDS: POTASSIUM CHLORIDE 10 MEQ TABCR PO SCH (07:56)
[2020-07-27] MEDS: ATORVASTATIN 20 MG TAB PO SCH (07:56)
[2020-07-27] MEDS: ASPIRIN 81 MG ECTAB PO SCH (07:56)
[2020-07-27] MEDS: PANTOprazole 40 MG TAB PO SCH (07:56)
[2020-07-27] MEDS: hydroCHLOROthiazide 25 MG TAB PO SCH (07:57)
[2020-07-27] MEDS: ENOXAPARIN INJ 40 MG/0.4 ML SYR SQ SCH (08:37)
[2020-07-27] MEDS: INSULIN ASPART 100 UNITS/ML 3 ML PEN SC SCH ×4 (08:50→20:29)
[2020-07-27] MEDS: lisinopril 20 MG TAB PO SCH (20:05)
--- NOTE | 2020-07-27 22:58 | Hospitalist Progress Note ---
Date of Service July 27, 2020 Assessment & Plan (1) Weakness: CVA ruled out on 07/23 with MRI. CTA neck on 07/21 showed possible fibromuscular dysplasia with beaded appearance of bilateral carotids. - Consider diagnostic angiogram at [place] for FMD. - Neurology following - Echo in 2 weeks after Covid - Follow up in neurology clinic in 6-8 weeks - Started ASA; monitor for diarrhea - Started atorvastatin - Since no acute CVA on MRI, ordered ortho consult. Will see her for chronic left rotator cuff arthropathy in 2 weeks after Covid. - Likely leg weakness is deconditioning and/or old infarct. Plan for rehab. Awaiting for placement. Updated son on phone. (2) UTI (urinary tract infection): With leukocytosis on admission. - Continued ceftriaxone x 3 days (Last day: 07/24/2020) (3) COVID-19: Already vaccinated > 2 weeks ago. - Asymptomatic - No treatment needed - Family requests re-testing. -3 tests: 2 negatives. (one of the negatives were done prior to admission) (4) Diabetes: A1c was 8.1% this admission. Not on any home meds - Sliding scale insulin -> Sugars under poor control, possibly due to her chronic steroids. (5) Hypertension: BP today is 170/70. Goal < 130/80. Has been much lower throughout stay, so not sure why they are higher today. - Continue home HCTZ with potassium - Started lisinopril on 07/24 -> Increase dose to 20 mg on 07/25 - continue regimen. (6) Seronegative arthritis: Follows with Dr. Jameson. - Continue home prednisone 5 mg PO daily (7) DVT prophylaxis: Lovenox 40 mg SQ daily Admission and Anticipated Discharge Date Admission Date: July 21, 2020 Subjective She has no new complaints. Feeling well. Review of Systems Review of Systems: All systems reviewed & are unremarkable except as noted in HPI & below Physical Exam Physical Exam: Constitutional: WD/WN, vitals as above Eyes: EOM intact bilaterally; no conjunctival abnormality ENMT: external ear and nose normal, oropharynx normal Neck: trachea midline, no thyromegaly normal visual inspection Respiratory: normal respiratory effort, lungs clear to auscultation no respiratory distress Cardiovascular: RRR, no murmur, no edema Gastrointestinal (Abdomen): Inspection/Auscultation: abdomen normal to inspection; abdomen not distended Skin: no rashes, warm and dry Neurologic: moves all extremities and awake Speech / Cognition: normal speech Psychiatric: Orientation: alert, oriented to person and cooperative Results & Data Results & Data ([facility]) Vital Signs (Past 12 Hours) Vital Signs Temp Pulse Resp BP Pulse Ox 07/27/20 19:12 36.8 C 80 18 168/82 H 94 07/27/20 15:40 36.5 C 78 20 149/69 H 95 07/27/20 11:37 36.8 C 79 16 122/74 93 PG Care Time/CCT Total # of Minutes Spent Total Time Spent with Patient: Total time spent is greater than 50% in coordination of care (as documented) at patient's floor/unit and/or counseling patient: Coding Level of Care Code 61671 Subseq Hosp Care Lvl 2 Diagnoses Weakness R53.1 UTI (urinary tract infection) N39.0 COVID-19 U07.1 Diabetes E11.9 Hypertension I10 Seronegative arthritis M13.80 DVT prophylaxis Z29.9 Time Spent (min) 25
[2020-07-28] MEDS: PANTOprazole 40 MG TAB PO SCH (07:54)
[2020-07-28] MEDS: hydroCHLOROthiazide 25 MG TAB PO SCH (07:55)
[2020-07-28] MEDS: POTASSIUM CHLORIDE 10 MEQ TABCR PO SCH (07:57)
[2020-07-28] MEDS: predniSONE 5 MG TAB PO SCH (07:57)
[2020-07-28] MEDS: ENOXAPARIN INJ 40 MG/0.4 ML SYR SQ SCH (07:58)
[2020-07-28] MEDS: ATORVASTATIN 20 MG TAB PO SCH (07:58)
[2020-07-28] MEDS: ASPIRIN 81 MG ECTAB PO SCH (07:58)
[2020-07-28] MEDS: INSULIN ASPART 100 UNITS/ML 3 ML PEN SC SCH ×4 (08:50→21:41)
[2020-07-28] MEDS ORDERED: predniSONE 20 MG TAB PO STA (11:36)
[2020-07-28] MEDS: POLYETHYLENE (MIRALAX) 17 GM PACK PO SCH (12:11)
[2020-07-28 12:20] LABS: BUN Creatinine Ratio 27.6 (10-20); Creatinine Clr Calc Pharmacy 36.7 ml/min; Est GFR (African American) 78.6; Est GFR (Non-African American) 67.8; Potassium 4.4 mmol/L (3.5-5.1)
[2020-07-28] MEDS ORDERED: SODIUM CHLORIDE 0.9% 1000ML 1,000 ML IV SCH (12:45)
--- NOTE | 2020-07-28 13:23 | XRay Report ---
XR chest 1V portable HISTORY: Shortness of breath. covid-19; eval pneumonia COMPARISON: Chest 07/21/2020. FINDINGS: No pneumothorax. No pleural effusions. There are low lung volumes. The heart remains mildly enlarged. There is a moderate to large hiatus hernia, unchanged. No new focal lung consolidations to suggest pneumonia. No evidence for pulmonary edema. There is a tortuous descending thoracic aorta wi th likely aneurysmal dilatation measuring up to 4.5 cm. This remains unchanged. IMPRESSION: 1. No focal lung consolidations to suggest pneumonia. 2. 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 5 cm. This remains unchanged. 3. Stable mild cardiomegaly. 4. Moderate to large hiatus hernia. ACT 112: Negative or not required by law. Electronically signed by: Jeancarlos Molina M.D. 07/28/2020 1:22 PM
[2020-07-28] MEDS: SENNA 8.6 MG TAB PO SCH (14:32)
--- NOTE | 2020-07-28 21:02 | Hospitalist Progress Note ---
Date of Service July 28, 2020 Assessment & Plan (1) Weakness: Suspect 2nd to combination of UTI +/- COVID-19 infection. CVA ruled out on 07/23 with negative MRI. CTA neck on 07/21 showed possible fibromuscular dysplasia with beaded appearance of bilateral carotids. Consider diagnostic angiogram at [place] for above. Appreciate neuro consultation. Will complete w/u with echo. Follow up in neurology clinic in 6-8 weeks. Continue asa and statin. (2) UTI (urinary tract infection): resolved clinically. completed ceftriaxone x 3 days. (3) COVID-19: Cephaid was positive, Varner ID now negative. Cephaid is quite accurate thus I believe the Varner was falsely negative. Do suspect she has COVID-19 but fortunately with few to no symptoms. Cont airborne precautions. (4) Diabetes: A1c was 8.1% this admission. Not on any home meds Start lantus 6 units HS. novolog meals. (5) Hypertension: Labile. Remains on HCTZ and JOSE. Follow for now and adjust again if needed for improved control. (6) Seronegative arthritis: Follows with Dr. Jameson, [facility]. Continue home prednisone 5 mg PO daily; will give 20mg additional for "stress" purposes. Then 10mg additional tomorrow. (7) Chronic left shoulder pain: Appreciate ortho consult. Suspected rotator cuff issues with left shoulder. f/u ortho post-d/c. (8) Chronic kidney disease, stage 3a: baseline CrCrl 40s/50s BMP am (9) Constipation: miralax (10) DVT prophylaxis: Lovenox 40 mg SQ daily updated family by phone today awaiting placement Admission and Anticipated Discharge Date Admission Date: July 21, 2020 Subjective patient states left shoulder/arm pain and weakness is better denies fevers/chills denies cough/congestion/dyspnea denies loss of taste/smell appetite fair no new complaints Review of Systems Constitutional: + weakness Respiratory: no cough, no dyspnea and no wheezing Cardiovascular: no chest pain Gastrointestinal: + constipation; no nausea and no vomiting Physical Exam Constitutional: + thin and + altered mental status (mild confusion ); no acute distress ENMT: Mouth: + dry oral mucous membranes Respiratory: normal respiratory effort, lungs clear to auscultation Cardiovascular: Rate/Rhythm: regular rate and regular rhythm Heart Sounds: normal S1 and normal S2 Vessels: posterior tibial pulses present and dorsalis pedis pulses present; no JVD Extremities: no edema Gastrointestinal (Abdomen): normal bowel sounds, soft, nontender, no hepatosplenomegaly Musculoskeletal: jacky-articular muscle atrophy left shoulder; no tenderness to palpation left shoulder Psychiatric: Orientation: alert, oriented to person and oriented to place; + not oriented to time Results & Data Results [facility]) Vital Signs (Past 12 Hours) Vital Signs Temp Pulse Pulse Resp BP Pulse Ox 07/28/20 18:46 36.8 C 98 H 18 115/75 93 07/28/20 15:43 84 07/28/20 10:54 72 16 114/69 92 Laboratory Results Laboratory Results - last 24 hr 07/28/20 07/28/20 07/28/20 07:54 11:17 11:55 Sodium 135 L Potassium 4.4 Chloride 105 Carbon Dioxide 25 Anion Gap 5.0 BUN 22 H Creatinine 0.79 Est Cr Clr Drug Dosing 36.7 Est GFR ( Amer) 78.6 Est GFR (Non-Af Amer) 67.8 BUN/Creatinine Ratio 27.6 H Glucose 147 H POC Glucose 124 H 198 H Calcium 9.0 07/28/20 07/28/20 17:02 20:32 Sodium Potassium Chloride Carbon Dioxide Anion Gap BUN Creatinine Est Cr Clr Drug Dosing Est GFR ( Amer) Est GFR (Non-Af Amer) BUN/Creatinine Ratio Glucose POC Glucose 168 H 172 H Calcium PG Care Time/CCT Total # of Minutes Spent Total Time Spent with Patient: Total time spent is greater than 50% in coordination of care (as documented) at patient's floor/unit and/or counseling patient: Coding Level of Care Code 76042 Subseq Hosp Care Lvl 3 Diagnoses Weakness R53.1 UTI (urinary tract infection) N39.0 COVID-19 U07.1 Diabetes E11.9 Hypertension I10 Seronegative arthritis M13.80 Chronic left shoulder pain M25.512; G89.29 Chronic kidney disease, stage 3a N18.31 Constipation K59.00 DVT prophylaxis Z29.9
[2020-07-28] MEDS: INSULIN GLARGINE SOLOSTAR 100 UNITS/ML 3 ML PEN SC SCH (21:40)
[2020-07-28] MEDS: lisinopril 20 MG TAB PO SCH (21:42)
[2020-07-29] MEDS: ENOXAPARIN INJ 40 MG/0.4 ML SYR SQ SCH (08:03)
[2020-07-29] MEDS: PANTOprazole 40 MG TAB PO SCH (08:03)
[2020-07-29] MEDS: POTASSIUM CHLORIDE 10 MEQ TABCR PO SCH (08:03)
[2020-07-29] MEDS: predniSONE 5 MG TAB PO SCH (08:03)
[2020-07-29] MEDS: ATORVASTATIN 20 MG TAB PO SCH (08:04)
[2020-07-29] MEDS: hydroCHLOROthiazide 25 MG TAB PO SCH (08:04)
[2020-07-29] MEDS: ASPIRIN 81 MG ECTAB PO SCH (08:04)
[2020-07-29] MEDS: SENNA 8.6 MG TAB PO SCH (08:04)
[2020-07-29] MEDS: POLYETHYLENE (MIRALAX) 17 GM PACK PO SCH (08:04)
[2020-07-29] MEDS: INSULIN ASPART 100 UNITS/ML 3 ML PEN SC SCH ×4 (08:33→20:15)
[2020-07-29] MEDS ORDERED: predniSONE 10 MG TABLET PO ONE (09:30)
[2020-07-29] MEDS ORDERED: amLODIPine BESYLATE 5 MG TAB PO ONE (15:37)
--- NOTE | 2020-07-29 18:24 | Hospitalist Progress Note ---
Date of Service July 29, 2020 Assessment & Plan (1) Weakness: Suspect 2nd to combination of UTI + COVID-19 infection. CVA ruled out on 07/23 with negative MRI. Can't rule out other factors (low-grade depression? other?). Check B12, folate, B1, sed rate, crp in am. CTA neck on 07/21 showed possible fibromuscular dysplasia with beaded appearance of bilateral carotids. Consider diagnostic angiogram at [place] for above. Appreciate neuro consultation. Echo pending to complete her work-up -- does have murmur on exam. Follow up in neurology clinic in 6-8 weeks. Continue asa and statin. (2) UTI (urinary tract infection): resolved clinically. completed ceftriaxone x 3 days. (3) COVID-19: Cephaid was positive, "Varner ID now" negative. Cephaid is quite accurate thus I believe the Varner was falsely negative. Do suspect she has COVID-19 but fortunately with few to no symptoms. Cont airborne precautions. CXR without pneumonia, but with some rales on exam which could be from mild COVID. (4) Diabetes: A1c was 8.1% this admission. Not on any home meds Started lantus 6 units HS. novolog meals. control satisfactory. consider lantus at d/c for control. (5) Hypertension: Labile. Remains on HCTZ and JOSE. Will start norvasc 5mg daily. (6) Seronegative arthritis: Follows with Dr. Jameson, [facility]. will give 15mg prednisone for "stress" purposes today. then total of 10mg tomorrow. then back to 5mg daily which is chronic dose. (7) Chronic left shoulder pain: Appreciate ortho consult. Suspected rotator cuff issues with left shoulder. f/u ortho post-d/c. (8) Chronic kidney disease, stage 3a: baseline CrCrl 40s/50s Cr has been stable (9) Constipation: miralax improved (10) DVT prophylaxis: Lovenox 40 mg SQ daily updated family by phone again today (Rachel, son) awaiting placement at [facility] Admission and Anticipated Discharge Date Admission Date: July 21, 2020 Subjective no new issues left shoulder pain / left arm weakness - resolved no cough, orthopnea, dyspnea no loss of taste or smell feeling "ok" she has baseline memory difficulties/confusion but no worse than previous eating about 50% of meals Review of Systems Constitutional: + fatigue and + weakness; no fever and no chills Respiratory: no cough, no dyspnea and no dyspnea on exertion Cardiovascular: no chest pain Physical Exam Constitutional: + thin and + altered mental status (mild confusion - baseline; no change ); no acute distress ENMT: external ear and nose normal, oropharynx normal Respiratory: Auscultation: + rales (bases, scattered ) Cardiovascular: Rate/Rhythm: regular rate and regular rhythm Heart Sounds: normal S1, normal S2 and + murmur (2/6 holosystolic RUSB ) Vessels: posterior tibial pulses present and dorsalis pedis pulses present; no JVD Extremities: no edema Gastrointestinal (Abdomen): normal bowel sounds, soft, nontender, no hepatosplenomegaly Psychiatric: Orientation: alert, oriented to person and oriented to place; + not oriented to time Affect: + flat affect Results & Data Results & Data ([facility]) Vital Signs (Past 12 Hours) Vital Signs Temp Pulse Pulse Resp BP Pulse Ox 07/29/20 14:34 36.9 C 75 20 176/81 H 93 07/29/20 11:52 36.6 C 61 18 161/71 H 95 07/29/20 08:00 62 07/29/20 07:59 36.6 C 58 L 20 165/81 H 96 Laboratory Results Laboratory Results - last 24 hr 07/28/20 07/29/20 07/29/20 20:32 07:42 11:55 POC Glucose 172 H 108 H 143 H 07/29/20 17:01 POC Glucose 155 H PG Care Time/CCT Total # of Minutes Spent Total Time Spent with Patient: Total time spent is greater than 50% in coordination of care (as documented) at patient's floor/unit and/or counseling patient: Coding Level of Care Code 16795 Subseq Hosp Care Lvl 2 Diagnoses Weakness R53.1 UTI (urinary tract infection) N39.0 COVID-19 U07.1 Diabetes E11.9 Hypertension I10 Seronegative arthritis M13.80 Chronic left shoulder pain M25.512; G89.29 Chronic kidney disease, stage 3a N18.31 Constipation K59.00 DVT prophylaxis Z29.9
[2020-07-29] MEDS: lisinopril 20 MG TAB PO SCH (20:18)
[2020-07-29] MEDS: INSULIN GLARGINE SOLOSTAR 100 UNITS/ML 3 ML PEN SC SCH (20:37)
[2020-07-30 07:05] LABS: Folate (Folic Acid) > 20.00 ng/ml (>5.38); Vitamin B12 608 pg/ml (193-986)
[2020-07-30] MEDS ORDERED: predniSONE 10 MG TABLET PO SCH (09:00)
[2020-07-30] MEDS: hydroCHLOROthiazide 25 MG TAB PO SCH (09:13)
[2020-07-30] MEDS: ATORVASTATIN 20 MG TAB PO SCH (09:13)
[2020-07-30] MEDS: ENOXAPARIN INJ 40 MG/0.4 ML SYR SQ SCH (09:13)
[2020-07-30] MEDS: SENNA 8.6 MG TAB PO SCH (09:14)
[2020-07-30] MEDS: PANTOprazole 40 MG TAB PO SCH (09:14)
[2020-07-30] MEDS: POLYETHYLENE (MIRALAX) 17 GM PACK PO SCH (09:14)
[2020-07-30] MEDS: ASPIRIN 81 MG ECTAB PO SCH (09:14)
[2020-07-30] MEDS: POTASSIUM CHLORIDE 10 MEQ TABCR PO SCH (09:15)
[2020-07-30] MEDS: THIAMINE HCL 100 MG TAB PO SCH ×2 (09:15→20:55)
[2020-07-30] MEDS: amLODIPine BESYLATE 5 MG TAB PO SCH (09:15)
[2020-07-30] MEDS: INSULIN ASPART 100 UNITS/ML 3 ML PEN SC SCH ×4 (09:20→20:32)
[2020-07-30] MEDS: INSULIN GLARGINE SOLOSTAR 100 UNITS/ML 3 ML PEN SC SCH (20:32)
[2020-07-30] MEDS: lisinopril 20 MG TAB PO SCH (20:54)
--- NOTE | 2020-07-30 22:49 | Hospitalist Progress Note ---
Date of Service July 30, 2020 Assessment & Plan (1) Weakness: IMPROVED. Suspect 2nd to combination of UTI + COVID-19 infection at time of admission. CVA ruled out on 07/23 with negative MRI. Can't rule out other factors (low-grade depression? other?). Checked B12, folate, B1, sed rate, crp -- all wnl; B1 level pending. Will supplement B1 200mg BID while awaiting the lab. CTA neck on 07/21 showed possible fibromuscular dysplasia with beaded appearance of bilateral carotids. Consider diagnostic angiogram at [place] for above. Appreciate neuro consultation. Echo pending to complete her work-up -- does have murmur on exam. Uncertain if her focal left arm weakness was truly a TIA vs due to intrinsic shoulder issues on left. Follow up in neurology clinic in 6-8 weeks. Continue asa and statin. (2) UTI (urinary tract infection): resolved clinically. completed ceftriaxone x 3 days. (3) COVID-19: Cephaid was positive, "Varner ID now" test negative. Cephaid is quite accurate thus I believe the Varner was falsely negative. Do suspect she has COVID-19 but fortunately with few to no symptoms. Cont airborne precautions. CXR without pneumonia, but with some rales on exam which could be from mild COVID. Either way very stable. Cont airborne isolation. (4) Diabetes: A1c was 8.1% this admission. Not on any home meds Started lantus 6 units HS. novolog meals. control satisfactory. consider lantus at d/c for control. (5) Hypertension: improving with addition of norvasc 5mg to her usual HCTZ and JOSE. (6) Seronegative arthritis: Follows with Dr. Jameson [facility]. will give 10mg prednisone for "stress" purposes today. then back to 5mg daily tomorrow am which is chronic dose. (7) Chronic left shoulder pain: Appreciate ortho consult. Suspected rotator cuff issues with left shoulder. f/u ortho post-d/c. (8) Chronic kidney disease, stage 3a: baseline CrCrl 40s/50s Cr has been stable including today's BMP (9) Constipation: miralax improved (10) DVT prophylaxis: Lovenox 40 mg SQ daily updated son Rachel by phone yesterday awaiting auth and placement at [facility] Admission and Anticipated Discharge Date Admission Date: July 21, 2020 Subjective when I walked into her isolation room she was on the toilet and had soiled her brief. we got her cleaned up and into the chair. denied any complaints today. tele wnl overnight. feeling good. appetite fair but this is chronic. Review of Systems Respiratory: no cough and no dyspnea Cardiovascular: no chest pain Gastrointestinal: no abdominal pain Physical Exam Constitutional: + thin and + altered mental status (pleasantconfusion - baseline); no acute distress ENMT: external ear and nose normal, oropharynx normal Respiratory: no respiratory distress Auscultation: + rales (left base only ); no wheezes Cardiovascular: Rate/Rhythm: regular rate and regular rhythm Heart Sounds: normal S1, normal S2 and + murmur (2/6 holosystolic RUSB ) Vessels: posterior tibial pulses present and dorsalis pedis pulses present; no JVD Extremities: no edema Gastrointestinal (Abdomen): normal bowel sounds, soft, nontender, no hepatosplenomegaly Psychiatric: Orientation: alert, oriented to person and oriented to place; + not oriented to time Results & Data Results & Data ([facility]) Vital Signs (Past 12 Hours) Vital Signs Temp Pulse Resp BP Pulse Ox 07/30/20 19:56 36.9 C 75 18 133/72 94 07/30/20 15:35 36.7 C 69 16 149/79 H 95 07/30/20 11:45 36.4 C 62 16 186/70 H 94 Laboratory Results Laboratory Results - last 24 hr 07/30/20 07/30/20 07/30/20 05:47 05:47 05:47 ESR 10 POC Glucose C-Reactive Protein 0.54 H Whole Bld Vitamin B1 Vitamin B12 608 Folate > 20.00 COVID- Eval Order SARS-CoV-2, RNA, NAAT 07/30/20 07/30/20 07/30/20 05:47 07:52 11:27 ESR POC Glucose 102 H 140 H C-Reactive Protein Whole Bld Vitamin B1 Pending Vitamin B12 Folate COVID- Eval Order SARS-CoV-2, RNA, NAAT 07/30/20 07/30/20 07/30/20 17:01 20:22 Unknown ESR POC Glucose 141 H 108 H C-Reactive Protein Whole Bld Vitamin B1 Vitamin B12 Folate COVID- [facility] SARS-CoV-2, RNA, NAAT 07/30/20 Unknown ESR POC Glucose C-Reactive Protein Whole Bld Vitamin B1 Vitamin B12 Folate COVID-19 Eval Order SARS-CoV-2, RNA, NAAT NEGATIVE PG Care Time/CCT Total # of Minutes Spent Total Time Spent with Patient: Total time spent is greater than 50% in coordination of care (as documented) at patient's floor/unit and/or counseling patient: Coding Level of Care Code 61994 Subseq Hosp Care Lvl 2 Diagnoses Weakness R53.1 UTI (urinary tract infection) N39.0 COVID-19 U07.1 Diabetes E11.9 Hypertension I10 Seronegative arthritis M13.80 Chronic left shoulder pain M25.512; G89.29 Chronic kidney disease, stage 3a N18.31 Constipation K59.00 DVT prophylaxis Z29.9
[2020-07-31 08:13] LABS: BUN Creatinine Ratio 24.4 (10-20); Calcium 9.1 mg/dl (8.5-10.1); Creatinine Clr Calc Pharmacy 43.3 ml/min; Est GFR (African American) 92.2; Est GFR (Non-African American) 79.6; Potassium 3.4 mmol/L (3.5-5.1)
[2020-07-31] MEDS: POLYETHYLENE (MIRALAX) 17 GM PACK PO SCH (08:23)
[2020-07-31] MEDS: ASPIRIN 81 MG ECTAB PO SCH (08:25)
[2020-07-31] MEDS: ATORVASTATIN 20 MG TAB PO SCH (08:25)
[2020-07-31] MEDS: amLODIPine BESYLATE 5 MG TAB PO SCH (08:25)
[2020-07-31] MEDS: ENOXAPARIN INJ 40 MG/0.4 ML SYR SQ SCH (08:26)
[2020-07-31] MEDS: hydroCHLOROthiazide 25 MG TAB PO SCH (08:26)
[2020-07-31] MEDS: POTASSIUM CHLORIDE 10 MEQ TABCR PO SCH (08:26)
[2020-07-31] MEDS: PANTOprazole 40 MG TAB PO SCH (08:26)
[2020-07-31] MEDS: THIAMINE HCL 100 MG TAB PO SCH ×2 (08:27→20:29)
[2020-07-31] MEDS: SENNA 8.6 MG TAB PO SCH (08:28)
[2020-07-31] MEDS: predniSONE 5 MG TAB PO SCH (09:39)
[2020-07-31] MEDS: INSULIN ASPART 100 UNITS/ML 3 ML PEN SC SCH ×4 (09:39→20:35)
[2020-07-31] MEDS: lisinopril 20 MG TAB PO SCH (20:29)
[2020-07-31] MEDS: INSULIN GLARGINE SOLOSTAR 100 UNITS/ML 3 ML PEN SC SCH (20:36)
--- NOTE | 2020-07-31 20:55 | Hospitalist Progress Note ---
Date of Service July 31, 2020 Assessment & Plan (1) Weakness: IMPROVED. Suspect 2nd to combination of UTI + COVID-19 infection at time of admission. Hypokalemia likely also contributed. CVA ruled out on 07/23 with negative MRI. Checked B12, folate, B1, sed rate, crp -- all wnl; B1 level pending. Will supplement B1 200mg BID while awaiting the lab. CTA neck on 07/21 showed possible fibromuscular dysplasia with beaded appearance of bilateral carotids. Consider diagnostic angiogram at [place] for above. Appreciate neuro consultation. Echo pending to complete her work-up -- does have murmur on exam. Uncertain if her focal left arm weakness was truly a TIA vs due to intrinsic sh oulder issues on left. Follow up in neurology clinic in 6-8 weeks. Continue asa and statin. (2) UTI (urinary tract infection): resolved clinically. completed ceftriaxone x 3 days. (3) COVID-19: Cephaid was positive, "Varner ID now" test negative. Cephaid is quite accurate thus I believe the Varner was falsely negative. Do suspect she has had COVID-19 but fortunately with few to no symptoms. Biggest symptom was likely the fatigue. Cont airborne precautions until tomorrow. May be able to d/c precautions since we are 10 days out from her + COVID test on 07/21/20. (4) Diabetes: HbA1c 8.1% this admission. cont lantus 6 units HS. cont novolog with meals. excellent control. (5) Hypertension: improving with addition of norvasc 5mg to her usual HCTZ and JOSE. no changes today. (6) Seronegative arthritis: Follows with Dr. Jameson, [facility]. stress dose steroids course resolved. back to 5mg/day which is chronic dose for her. no evidence of arthritis flare. (7) Chronic left shoulder pain: Appreciate ortho consult. Suspected rotator cuff issues with left shoulder. f/u ortho post-d/c. (8) Chronic kidney disease, stage 3a: baseline CrCrl 40s/50s Cr again stable today (9) Constipation: continue miralax for maintenance (10) Hypokalemia: replace with additional KCL today then increase daily maintenance dose to 20meq (11) DVT prophylaxis: Lovenox 40 mg SQ daily updated daughter today by phone unfortunately the pt's insurance, [employer], denied the request for SNF placement for rehab stating she is doing too well from a PT/OT standpoint I disagree with this decision I told the medical records auditor of [place] that I personally tended to the patient while she had fecal incontinence yesterday, and mentioned that the patient could not wipe herself, could not stand up from the toilet, etc during this event I also mentioned that today's OT note documents a 50% functional loss Despite the above the denial was upheld I spoke with Anila from social work - we will initiate appeal; family agrees with appeal process Admission and Anticipated Discharge Date Admission Date: July 21, 2020 Subjective no issues overnight patient laying in bed comfortably expresses boredom no cough, no dyspnea eating fair at best Review of Systems Constitutional: no fever and no chills Ear, Nose, Mouth, Throat: no loss of taste or smell Respiratory: no cough and no dyspnea Cardiovascular: no chest pain Gastrointestinal: no abdominal pain, no nausea and no vomiting Physical Exam Constitutional: + thin and + altered mental status (pleasant confusion ); no acute distress ENMT: external ear and nose normal, oropharynx normal Respiratory: no respiratory distress Auscultation: + rales (left base only (scant)); no wheezes Cardiovascular: Rate/Rhythm: regular rate and regular rhythm Heart Sounds: normal S1, normal S2 and + murmur (2/6 holosystolic RUSB ) Vessels: posterior tibial pulses present and dorsalis pedis pulses present; no JVD Extremities: no edema Gastrointestinal (Abdomen): normal bowel sounds, soft, nontender, no hepatosplenomegaly Psychiatric: Orientation: alert, oriented to person and oriented to place; + not oriented to time Results & Data Results & Data ([facility]) Vital Signs (Past 12 Hours) Vital Signs Temp Pulse Resp BP Pulse Ox 07/31/20 19:00 37 C 66 20 161/84 H 97 07/31/20 14:30 36.8 C 66 20 160/79 H 97 Laboratory Results Laboratory Results - last 24 hr 07/31/20 07/31/20 07/31/20 07:06 07:47 08:10 Sodium 136 Potassium 3.4 L Chloride 103 Carbon Dioxide 28 Anion Gap 5.0 BUN 16 Creatinine 0.67 Est Cr Clr Drug Dosing 43.3 Est GFR ( Amer) 92.2 Est GFR (Non-Af Amer) 79.6 BUN/Creatinine Ratio 24.4 H Glucose 90 POC Glucose 98 99 Calcium 9.1 07/31/20 07/31/20 07/31/20 12:06 17:31 20:26 Sodium Potassium Chloride Carbon Dioxide Anion Gap BUN Creatinine Est Cr Clr Drug Dosing Est GFR ( Amer) Est GFR (Non-Af Amer) BUN/Creatinine Ratio Glucose POC Glucose 156 H 129 H 141 H Calcium PG Care Time/CCT Total # of Minutes Spent Total Time Spent with Patient: Total time spent is greater than 50% in coordination of care (as documented) at patient's floor/unit and/or counseling patient: Coding Level of Care Code 78613 Subseq Hosp Care Lvl 2 Diagnoses Weakness R53.1 UTI (urinary tract infection) N39.0 COVID-19 U07.1 Diabetes E11.9 Hypertension I10 Seronegative arthritis M13.80 Chronic left shoulder pain M25.512; G89.29 Chronic kidney disease, stage 3a N18.31 Constipation K59.00 Hypokalemia E87.6 DVT prophylaxis Z29.9
[2020-08-01] MEDS: POLYETHYLENE (MIRALAX) 17 GM PACK PO SCH (08:47)
[2020-08-01] MEDS: INSULIN ASPART 100 UNITS/ML 3 ML PEN SC SCH ×4 (08:47→20:25)
[2020-08-01] MEDS: hydroCHLOROthiazide 25 MG TAB PO SCH (08:50)
[2020-08-01] MEDS: ATORVASTATIN 20 MG TAB PO SCH (08:50)
[2020-08-01] MEDS: ASPIRIN 81 MG ECTAB PO SCH (08:50)
[2020-08-01] MEDS: PANTOprazole 40 MG TAB PO SCH (08:50)
[2020-08-01] MEDS: amLODIPine BESYLATE 5 MG TAB PO SCH (08:50)
[2020-08-01] MEDS: ENOXAPARIN INJ 40 MG/0.4 ML SYR SQ SCH (08:50)
[2020-08-01] MEDS: THIAMINE HCL 100 MG TAB PO SCH ×2 (08:51→20:29)
[2020-08-01] MEDS: predniSONE 5 MG TAB PO SCH (08:51)
[2020-08-01] MEDS: SENNA 8.6 MG TAB PO SCH (08:51)
[2020-08-01] MEDS: POTASSIUM CHLORIDE CRTAB 20 MEQ TABCR PO SCH (12:09)
[2020-08-01] MEDS: INSULIN GLARGINE SOLOSTAR 100 UNITS/ML 3 ML PEN SC SCH (20:25)
[2020-08-01] MEDS: lisinopril 20 MG TAB PO SCH (20:29)
[2020-08-01] MEDS: TRIAMCINOLONE ACET 0.1% CR 80 GM TUBE EXT SCH (20:56)
--- NOTE | 2020-08-01 22:42 | Hospitalist Progress Note ---
Date of Service August 01, 2020 Assessment & Plan (1) Weakness: IMPROVED. Suspect 2nd to combination of UTI + COVID-19 infection at time of admission. Hypokalemia likely also contributed. CVA ruled out on 07/23 with negative MRI. Checked B12, folate, B1, sed rate, crp -- all wnl; B1 level pending. Cont B1 200mg BID while awaiting the lab. CTA neck on 07/21 showed possible fibromuscular dysplasia with beaded appearance of bilateral carotids. Consider diagnostic angiogram at [place] for above. Echo pending - suspect she has . Uncertain if her focal left arm weakness was truly a TIA vs due to intrinsic shoulder issues on left. Favor latter. Follow up in neurology clinic in 6-8 weeks. Continue asa and statin. (2) UTI (urinary tract infection): resolved. s/p ceftriaxone x 3 days earlier this stay. (3) COVID-19: Cephaid was positive on 07/21/20. Do suspect she has had COVID-19 but fortunately with few to no symptoms. Biggest symptom was likely the fatigue. d/c airborne precautions since we are 10 days out from her + COVID test, she is improved, and no recent fever. (4) Diabetes: HbA1c 8.1% this admission. cont lantus 6 units HS. cont novolog with meals. excellent control. (5) Hypertension: improved with addition of norvasc 5mg to her usual HCTZ and JOSE. (6) Seronegative arthritis: Follows with Dr. Jameson, [facility]. stress dose steroids course resolved. back to 5mg/day which is chronic dose for her. no evidence of arthritis flare. (7) Chronic left shoulder pain: Appreciate ortho consult. Suspected rotator cuff issues with left shoulder. f/u ortho post-d/c. no complaints of pain last few days. (8) Chronic kidney disease, stage 3a: baseline CrCrl 40s/50s repeat BMP am for stability (9) Constipation: continue miralax for maintenance (10) Hypokalemia: resolved (11) DVT prophylaxis: Lovenox 40 mg SQ daily skin rash- likely contact rash - triamcinolone cream 0.1% TID in thin amounts 07/31 -- [employer] insurance denied request for SNF placement appeal in progress back-up plan - [facility]? Admission and Anticipated Discharge Date Admission Date: July 21, 2020 Subjective no issues overnight is 10+ days out from her COVID dx patient offers no new complaints this am Review of Systems Respiratory: no cough, no dyspnea and no dyspnea on exertion Physical Exam Constitutional: + thin and + altered mental status (pleasant confusion, but seems a bit better than yesterday ); no acute distress ENMT: external ear and nose normal, oropharynx normal Respiratory: normal respiratory effort, lungs clear to auscultation no respiratory distress Cardiovascular: Rate/Rhythm: regular rate and regular rhythm Heart Sounds: normal S1, normal S2 and + murmur (2/6 holosystolic RUSB ) Vessels: posterior tibial pulses present and dorsalis pedis pulses present; no JVD Extremities: no edema Gastrointestinal (Abdomen): normal bowel sounds, soft, nontender, no hepatosplenomegaly Skin: erythematous rash low back and upper buttocks Psychiatric: Orientation: alert, oriented to person and oriented to place; + not oriented to time Results & Data Results & Data ([facility]) Vital Signs (Past 12 Hours) Vital Signs Temp Pulse Resp BP Pulse Ox 08/01/20 14:12 36.8 C 84 20 98/63 L 92 Laboratory Results Laboratory Results - last 24 hr 08/01/20 08/01/20 08/01/20 08:09 12:03 17:03 POC Glucose 107 H 124 H 153 H 08/01/20 20:14 POC Glucose 146 H PG Care Time/CCT Total # of Minutes Spent Total Time Spent with Patient: Total time spent is greater than 50% in coordination of care (as documented) at patient's floor/unit and/or counseling patient: Coding Level of Care Code 19260 Subseq Hosp Care Lvl 1 Diagnoses Weakness R53.1 UTI (urinary tract infection) N39.0 COVID-19 U07.1 Diabetes E11.9 Hypertension I10 Seronegative arthritis M13.80 Chronic left shoulder pain M25.512; G89.29 Chronic kidney disease, stage 3a N18.31 Constipation K59.00 Hypokalemia E87.6 DVT prophylaxis Z29.9
[2020-08-02] MEDS: hydroCHLOROthiazide 25 MG TAB PO SCH (07:35)
[2020-08-02] MEDS: POTASSIUM CHLORIDE CRTAB 20 MEQ TABCR PO SCH (07:35)
[2020-08-02] MEDS: PANTOprazole 40 MG TAB PO SCH (07:35)
[2020-08-02] MEDS: predniSONE 5 MG TAB PO SCH (07:35)
[2020-08-02] MEDS: amLODIPine BESYLATE 5 MG TAB PO SCH (07:36)
[2020-08-02] MEDS: ATORVASTATIN 20 MG TAB PO SCH (07:36)
[2020-08-02] MEDS: THIAMINE HCL 100 MG TAB PO SCH ×2 (07:36→20:52)
[2020-08-02] MEDS: ENOXAPARIN INJ 40 MG/0.4 ML SYR SQ SCH (07:36)
[2020-08-02] MEDS: SENNA 8.6 MG TAB PO SCH (07:37)
[2020-08-02] MEDS: ASPIRIN 81 MG ECTAB PO SCH (07:37)
[2020-08-02] MEDS: POLYETHYLENE (MIRALAX) 17 GM PACK PO SCH (07:37)
[2020-08-02] MEDS: TRIAMCINOLONE ACET 0.1% CR 80 GM TUBE EXT SCH ×3 (07:38→20:51)
[2020-08-02 07:44] LABS: Basophils # (auto) 0.03 K/uL (0-0.2); Basophils % (auto) 0.4 %; Eosinophils # (auto) 0.51 K/uL (0-0.5); Eosinophils % (auto) 6.4 %; Hematocrit (blood only) 39.3 % (37-47); Hemoglobin 13.4 g/dL (12.0-16.0); Immature Granulocytes # (auto) 0.07 K/uL (0.00-0.02); Immature Granulocytes % (auto) 0.9 %; Lymphocytes # (auto) 0.79 K/uL (1.2-3.4); Mean Corpuscular Hemoglobin 30.2 pg (25-34); Mean Corpuscular Hgb Conc 34.1 g/dL (32-36); Mean Corpuscular Volume 88.7 fL (80-100); Mean Platelet Volume 10.1 fL (7.4-10.4); Monocytes # (auto) 0.65 K/uL (0.11-0.59); Monocytes % (auto) 8.2 %; Neutrophils # (auto) 5.86 K/uL (1.4-6.5); Neutrophils % (auto) 74.1 %; Platelet Count 348 K/uL (130-400); RDW Coefficient of Variation 13.1 % (11.5-14.5); RDW Standard Deviation 42.7 fL (36.4-46.3); Red Blood Count 4.43 M/uL (4.2-5.4); White Blood Count 7.91 K/uL (4.8-10.8)
[2020-08-02 08:11] LABS: Calcium 9.3 mg/dl (8.5-10.1); Creatinine Clr Calc Pharmacy 46.8 ml/min; Est GFR (African American) 94.6; Est GFR (Non-African American) 81.6; Potassium 3.5 mmol/L (3.5-5.1)
[2020-08-02] MEDS: INSULIN ASPART 100 UNITS/ML 3 ML PEN SC SCH ×4 (08:11→20:50)
--- NOTE | 2020-08-02 19:45 | Hospitalist Progress Note ---
Date of Service August 02, 2020 Assessment & Plan (1) Weakness: Improving nicely with time and with PT/OT. Suspect 2nd to combination of UTI + COVID-19 infection at time of admission. Hypokalemia likely also contributed. CVA ruled out on 07/23 with negative MRI. Checked B12, folate, B1, sed rate, crp -- all wnl; B1 level pending. Cont B1 200mg BID while awaiting the lab. CTA neck on 07/21 showed possible fibromuscular dysplasia with beaded appearance of bilateral carotids. Consider diagnostic angiogram at [place] for above. Echo pending - suspect she has . Uncertain if her focal left arm weakness was truly a TIA vs due to intrinsic shoulder issues on left. Favor latter. Follow up in neurology clinic in 6-8 weeks. Continue asa and statin. (2) UTI (urinary tract infection): resolved. s/p ceftriaxone x 3 days earlier this stay. (3) COVID-19: Cephaid was positive on 07/21/20. Do suspect she had COVID-19 but fortunately with few to no symptoms. Biggest symptom was likely the fatigue. This has improved. d/c airborne precautions since we are 10 days out from her + COVID test, she is improved, and no recent fever. patient now in regular room. (4) Diabetes: HbA1c 8.1% this admission. cont lantus 6 units HS. cont novolog with meals. excellent control. (5) Hypertension: controlled cont norvasc, HCTZ, and JOSE. (6) Seronegative arthritis: Follows with Dr. Jameson, [facility]. stress dose steroids course resolved. back to 5mg/day which is chronic dose for her. no evidence of arthritis flare. (7) Chronic left shoulder pain: Appreciate ortho consult. Suspected rotator cuff issues with left shoulder. f/u ortho post-d/c. no complaints of pain last few days. (8) Chronic kidney disease, stage 3a: baseline CrCrl 40s/50s repeat BMP wnl (Cr 0.6 today) (9) Constipation: continue miralax for maintenance (10) Hypokalemia: resolved (11) DVT prophylaxis: Lovenox 40 mg SQ daily skin rash- likely contact rash - triamcinolone cream 0.1% TID in thin amounts - this looks better today 07/31 -- [employer] insurance denied request for SNF placement appeal in progress back-up plan - [facility]? Admission and Anticipated Discharge Date Admission Date: July 21, 2020 Subjective no issues overnight or today patient resting comfortably in bed during visit offered no complaints she is quite bored and irritated that insurance denied SNF rehab Review of Systems Respiratory: no cough and no dyspnea Cardiovascular: no chest pain Gastrointestinal: no abdominal pain and no diarrhea/loose stools Physical Exam Constitutional: + thin and + altered mental status (pleasant confusion; again seems better once again today ); no acute distress ENMT: external ear and nose normal, oropharynx normal Respiratory: normal respiratory effort, lungs clear to auscultation no respiratory distress Cardiovascular: Rate/Rhythm: regular rate and regular rhythm Heart Sounds: normal S1, normal S2 and + murmur (2/6 holosystolic RUSB ) Vessels: posterior tibial pulses present and dorsalis pedis pulses present; no JVD Extremities: no edema Gastrointestinal (Abdomen): normal bowel sounds, soft, nontender, no hepatosplenomegaly Skin: rash - low back/buttocks - improved Psychiatric: Orientation: alert, oriented to person and oriented to place; + not oriented to time Results & Data Results & Data ([facility]) Vital Signs (Past 12 Hours) Vital Signs Temp Pulse Resp BP Pulse Ox 08/02/20 15:19 36.8 C 76 18 108/66 93 Laboratory Results Laboratory Results - last 24 hr 08/01/20 08/02/20 08/02/20 20:14 06:29 06:29 WBC 7.91 RBC 4.43 Hgb 13.4 Hct 39.3 MCV 88.7 MCH 30.2 MCHC 34.1 RDW Std Deviation 42.7 RDW Coeff of Marita 13.1 Plt Count 348 MPV 10.1 Immature Gran % (Auto) 0.9 Neut % (Auto) 74.1 Lymph % (Auto) 10.0 [place] % (Auto) 8.2 Eos % (Auto) 6.4 Baso % (Auto) 0.4 Neut # (Auto) 5.86 Lymph # (Auto) 0.79 L [place] # (Auto) 0.65 H Eos # (Auto) 0.51 H Baso # (Auto) 0.03 Immature Gran # (Auto) 0.07 H Sodium 134 L Potassium 3.5 Chloride 101 Carbon Dioxide 27 Anion Gap 6.0 BUN 24 H Creatinine 0.62 Est Cr Clr Drug Dosing 46.8 Est GFR ( Amer) 94.6 Est GFR (Non-Af Amer) 81.6 BUN/Creatinine Ratio 38.0 H Glucose 104 H POC Glucose 146 H Calcium 9.3 08/02/20 08/02/20 08/02/20 07:22 11:33 16:23 WBC RBC Hgb Hct MCV MCH MCHC RDW Std Deviation RDW Coeff of Marita Plt Count MPV Immature Gran % (Auto) Neut % (Auto) Lymph % (Auto) [place] % (Auto) Eos % (Auto) Baso % (Auto) Neut # (Auto) Lymph # (Auto) [place] # (Auto) Eos # (Auto) Baso # (Auto) Immature Gran # (Auto) Sodium Potassium Chloride Carbon Dioxide Anion Gap BUN Creatinine Est Cr Clr Drug Dosing Est GFR ( Amer) Est GFR (Non-Af Amer) BUN/Creatinine Ratio Glucose POC Glucose 105 H 119 H 142 H Calcium PG Care Time/CCT Total # of Minutes Spent Total Time Spent with Patient: Total time spent is greater than 50% in coordination of care (as documented) at patient's floor/unit and/or counseling patient: Coding Level of Care Code 95837 Subseq Hosp Care Lvl 1 Diagnoses Weakness R53.1 UTI (urinary tract infection) N39.0 COVID-19 U07.1 Diabetes E11.9 Hypertension I10 Seronegative arthritis M13.80 Chronic left shoulder pain M25.512; G89.29 Chronic kidney disease, stage 3a N18.31 Constipation K59.00 Hypokalemia E87.6 DVT prophylaxis Z29.9
[2020-08-02] MEDS: INSULIN GLARGINE SOLOSTAR 100 UNITS/ML 3 ML PEN SC SCH (20:50)
[2020-08-02] MEDS: lisinopril 20 MG TAB PO SCH ×2 (20:51)
[2020-08-03] MEDS: POTASSIUM CHLORIDE CRTAB 20 MEQ TABCR PO SCH (08:40)
[2020-08-03] MEDS: THIAMINE HCL 100 MG TAB PO SCH ×2 (08:40→20:14)
[2020-08-03] MEDS: hydroCHLOROthiazide 25 MG TAB PO SCH (08:40)
[2020-08-03] MEDS: ATORVASTATIN 20 MG TAB PO SCH (08:41)
[2020-08-03] MEDS: ASPIRIN 81 MG ECTAB PO SCH (08:41)
[2020-08-03] MEDS: SENNA 8.6 MG TAB PO SCH ×2 (08:41→08:44)
[2020-08-03] MEDS: PANTOprazole 40 MG TAB PO SCH (08:41)
[2020-08-03] MEDS: predniSONE 5 MG TAB PO SCH (08:42)
[2020-08-03] MEDS: amLODIPine BESYLATE 5 MG TAB PO SCH (08:42)
[2020-08-03] MEDS: POLYETHYLENE (MIRALAX) 17 GM PACK PO SCH (08:43)
[2020-08-03] MEDS: TRIAMCINOLONE ACET 0.1% CR 80 GM TUBE EXT SCH ×3 (08:44→20:14)
[2020-08-03] MEDS: ENOXAPARIN INJ 40 MG/0.4 ML SYR SQ SCH (08:44)
[2020-08-03] MEDS: INSULIN ASPART 100 UNITS/ML 3 ML PEN SC SCH ×4 (08:45→21:30)
[2020-08-03] MEDS: INSULIN GLARGINE SOLOSTAR 100 UNITS/ML 3 ML PEN SC SCH (21:31)
--- NOTE | 2020-08-04 01:19 | Hospitalist Progress Note ---
Date of Service August 03, 2020 Assessment & Plan (1) Weakness: Improving nicely with time and with PT/OT. Suspect 2nd to combination of UTI + COVID-19 infection at time of admission. Hypokalemia likely also contributed. TIA or stroke was entertained as possible etiology at time of admission. CVA ruled out on 07/23 with negative MRI. Checked B12, folate, B1, sed rate, crp -- all wnl; B1 level pending. Cont B1 200mg BID while awaiting the lab. CTA neck on 07/21 showed possible fibromuscular dysplasia with beaded appearance of bilateral carotids. Consider diagnostic angiogram at [place] for above. Echo pending - suspect she has . But no signs of CHF, etc. Follow up in neurology clinic in 6-8 weeks. Continue asa and statin. (2) UTI (urinary tract infection): resolved. s/p ceftriaxone x 3 days earlier this stay. (3) COVID-19: Cephaid was positive on 07/21/20. Do suspect she had COVID-19 but fortunately with few to no symptoms. Biggest symptom was likely the fatigue. This has improved. airborne precautions have been d/c. she is in regular room now. (4) Diabetes: HbA1c 8.1% this admission. cont lantus 6 units HS. cont novolog with meals. excellent control. at discharge - januvia? 1 shot of lantus/day? other? (5) Hypertension: controlled cont norvasc, HCTZ, and JOSE. (6) Seronegative arthritis: Follows with Dr. Jameson, [facility]. stress dose steroids course resolved. back to 5mg/day which is chronic dose for her. no evidence of arthritis flare. (7) Chronic left shoulder pain: Appreciate ortho consult. Suspected rotator cuff issues with left shoulder. She had c/o left arm weakness at time of admission - suspected to be from the shoulder issue. Symptoms now much better - no further weakness, left shoulder w/o pain, etc f/u ortho post-d/c (Dr Sean Navarro). (8) Chronic kidney disease, stage 3a: baseline CrCrl 40s/50s last few BMPs have been stable (9) Constipation: continue miralax for maintenance (10) Hypokalemia: resolved (11) Rash: 2 separate issues -- 1. contact dermatitis low back/upper buttocks - triamcinolone cream 0.1% TID in thin amounts - improved 2. tow picker's sores - she tends to scratch/pick arms & legs --- bactroban ointment BID (12) DVT prophylaxis: Lovenox 40 mg SQ daily 07/31 -- [employer] insurance denied request for SNF placement at [facility] appeal in progress - filed this past Tuesday by family back-up plan - [facility]? ([facility], [place] location) daughter updated earlier this weekend Admission and Anticipated Discharge Date Admission Date: July 21, 2020 Subjective patient feels good laying in bed comfortably she is bored offers no complaints eating is fair - this has been her eating habit all week Review of Systems Constitutional: no fever, no chills, no body aches, no fatigue, no weakness and no anorexia Respiratory: no cough, no dyspnea and no dyspnea on exertion Cardiovascular: no chest pain, no orthopnea and no edema Gastrointestinal: no abdominal pain, no nausea, no vomiting and no diarrhea/loose stools Physical Exam Constitutional: + thin and + altered mental status (pleasant confusion - baseline); no acute distress ENMT: external ear and nose normal, oropharynx normal Respiratory: normal respiratory effort, lungs clear to auscultation no respiratory distress Auscultation: no wheezes Cardiovascular: Rate/Rhythm: regular rate and regular rhythm Heart Sounds: normal S1, normal S2 and + murmur (2/6 holosystolic RUSB ) Vessels: posterior tibial pulses present and dorsalis pedis pulses present; no JVD Extremities: no edema Gastrointestinal (Abdomen): normal bowel sounds, soft, nontender, no hepatosplenomegaly Skin: + rash (Open sores ("tow picker sores") arms/legs; rash - low back - impro john) Psychiatric: Orientation: alert, oriented to person and oriented to place; + not oriented to time Results & Data Results & Data ([facility]) Vital Signs (Past 12 Hours) Vital Signs Temp Pulse Resp BP BP Pulse Ox 08/03/20 21:50 36.7 C 67 16 136/75 95 08/03/20 15:31 36.7 C 79 16 113/73 96 Laboratory Results Laboratory Results - last 24 hr 08/03/20 08/03/20 08/03/20 08:05 12:02 17:13 POC Glucose 117 H 127 H 131 H 08/03/20 20:46 POC Glucose 150 H PG Care Time/CCT Total # of Minutes Spent Total Time Spent with Patient: Total time spent is greater than 50% in coordination of care (as documented) at patient's floor/unit and/or counseling patient: Coding Level of Care Code 13573 Subseq Hosp Care Lvl 2 Diagnoses Weakness R53.1 UTI (urinary tract infection) N39.0 COVID-19 U07.1 Diabetes E11.9 Hypertension I10 Seronegative arthritis M13.80 Chronic left shoulder pain M25.512; G89.29 Chronic kidney disease, stage 3a N18.31 Constipation K59.00 Hypokalemia E87.6 Rash R21 DVT prophylaxis Z29.9
[2020-08-04 06:48] LABS: BUN Creatinine Ratio 26.4 (10-20); Calcium 9.2 mg/dl (8.5-10.1); Creatinine Clr Calc Pharmacy 40.3 ml/min; Est GFR (African American) 87.9; Est GFR (Non-African American) 75.8; Potassium 3.5 mmol/L (3.5-5.1)
[2020-08-04] MEDS: amLODIPine BESYLATE 5 MG TAB PO SCH (08:27)
[2020-08-04] MEDS: ASPIRIN 81 MG ECTAB PO SCH (08:28)
[2020-08-04] MEDS: ATORVASTATIN 20 MG TAB PO SCH (08:29)
[2020-08-04] MEDS: predniSONE 5 MG TAB PO SCH (08:29)
[2020-08-04] MEDS: SENNA 8.6 MG TAB PO SCH (08:29)
[2020-08-04] MEDS: PANTOprazole 40 MG TAB PO SCH (08:29)
[2020-08-04] MEDS: POTASSIUM CHLORIDE CRTAB 20 MEQ TABCR PO SCH (08:29)
[2020-08-04] MEDS: hydroCHLOROthiazide 25 MG TAB PO SCH (08:29)
[2020-08-04] MEDS: THIAMINE HCL 100 MG TAB PO SCH ×2 (08:30→22:01)
[2020-08-04] MEDS: ENOXAPARIN INJ 40 MG/0.4 ML SYR SQ SCH (08:32)
[2020-08-04] MEDS: TRIAMCINOLONE ACET 0.1% CR 80 GM TUBE EXT SCH ×3 (08:42→22:02)
[2020-08-04] MEDS: MUPIROCIN 2% OINT 22 GM TUBE EXT SCH ×2 (08:43→22:01)
[2020-08-04] MEDS: POLYETHYLENE (MIRALAX) 17 GM PACK PO SCH (09:01)
[2020-08-04] MEDS: INSULIN ASPART 100 UNITS/ML 3 ML PEN SC SCH ×5 (09:08→23:36)
--- NOTE | 2020-08-04 21:46 | Hospitalist Progress Note ---
Date of Service August 04, 2020 Assessment & Plan (1) Weakness: Improving nicely with time and with PT/OT. Suspect 2nd to combination of UTI + COVID-19 infection at time of admission. Hypokalemia likely also contributed. TIA or stroke was entertained as possible etiology at time of admission. CVA ruled out on 07/23 with negative MRI. Checked B12, folate, B1, sed rate, crp -- all wnl; B1 level pending. Cont B1 200mg BID while awaiting the lab. CTA neck on 07/21 showed possible fibromuscular dysplasia with beaded appearance of bilateral carotids. Consider diagnostic angiogram at [place] for above. Echo pending - suspect she has . But no signs of CHF, etc. Follow up in neurology clinic in 6-8 weeks. Continue asa and statin. Awaiting placement. (2) UTI (urinary tract infection): resolved. s/p ceftriaxone x 3 days earlier this stay. (3) COVID-19: Cephaid was positive on 07/21/20. Do suspect she had COVID-19 but fortunately with few to no symptoms. Biggest symptom was likely the fatigue. This has improved. airborne precautions have been d/c. she is in regular room now. (4) Diabetes: HbA1c 8.1% this admission. cont lantus 6 units HS. cont novolog with meals. excellent control. at discharge - januvia? 1 shot of lantus/day? other? (5) Hypertension: controlled cont norvasc, HCTZ, and JOSE. (6) Seronegative arthritis: Follows with Dr. Jameson, [facility]. stress dose steroids course resolved. back to 5mg/day which is chronic dose for her. no evidence of arthritis flare. (7) Chronic left shoulder pain: Appreciate ortho consult. Suspected rotator cuff issues with left shoulder. She had c/o left arm weakness at time of admission - suspected to be from the shoulder issue. Symptoms now much better - no further weakness, left shoulder w/o pain, etc f/u ortho post-d/c (Dr Sean Navarro). (8) Chronic kidney disease, stage 3a: baseline CrCrl 40s/50s last few BMPs have been stable (9) Constipation: continue miralax for maintenance (10) Hypokalemia: resolved (11) Rash: 2 separate issues -- 1. contact dermatitis low back/upper buttocks - triamcinolone cream 0.1% TID in thin amounts - improved 2. scrap picker's sores - she tends to scratch/pick arms & legs --- bactroban ointment BID (12) DVT prophylaxis: Lovenox 40 mg SQ daily 07/31 -- [employer] insurance denied request for SNF placement at [facility] appeal in progress - filed this past Tuesday by family back-up plan - [facility]? ([facility], [place] location) daughter updated earlier this weekend Admission and Anticipated Discharge Date Admission Date: July 21, 2020 Subjective 85 yo female reports feeling well. She has no new complaints at this time. Review of Systems Review of Systems: All systems reviewed & are unremarkable except as noted in HPI & below Physical Exam Physical Exam: Constitutional: + thin and + altered mental status (pleasant confusion - baseline); no acute distress ENMT: external ear and nose normal, oropharynx normal Respiratory: normal respiratory effort, lungs clear to auscultation no respiratory distress Auscultation: no wheezes Cardiovascular: Rate/Rhythm: regular rate and regular rhythm Heart Sounds: normal S1, normal S2 and + murmur (2/6 holosystolic RUSB ) Vessels: posterior tibial pulses present and dorsalis pedis pulses present; no JVD Extremities: no edema Gastrointestinal (Abdomen): normal bowel sounds, soft, nontender, no hepatosplenomegaly Skin: + rash (Open sores ("scrap picker sores") arms/legs; rash - low back - improved) Psychiatric: Orientation: alert, oriented to person and oriented to place; + not oriented to time Results & Data Results & Data ([facility]) Vital Signs (Past 12 Hours) Vital Signs Temp Pulse Resp BP Pulse Ox 08/04/20 15:15 36.7 C 82 18 178/73 H 93 PG Care Time/CCT Total # of Minutes Spent Total Time Spent with Patient: Total time spent is greater than 50% in coordination of care (as documented) at patient's floor/unit and/or counseling patient: Coding Level of Care Code 66897 Subseq Hosp Care Lvl 2 Diagnoses Weakness R53.1 UTI (urinary tract infection) N39.0 COVID-19 U07.1 Diabetes E11.9 Hypertension I10 Seronegative arthritis M13.80 Chronic left shoulder pain M25.512; G89.29 Chronic kidney disease, stage 3a N18.31 Constipation K59.00 Hypokalemia E87.6 Rash R21 DVT prophylaxis Z29.9 Time Spent (min) 25
[2020-08-04] MEDS: INSULIN GLARGINE SOLOSTAR 100 UNITS/ML 3 ML PEN SC SCH (22:00)
[2020-08-04] MEDS: lisinopril 20 MG TAB PO SCH (22:01)
[2020-08-05] MEDS: INSULIN ASPART 100 UNITS/ML 3 ML PEN SC SCH ×4 (08:55→21:04)
[2020-08-05] MEDS: hydroCHLOROthiazide 25 MG TAB PO SCH (08:58)
[2020-08-05] MEDS: POTASSIUM CHLORIDE CRTAB 20 MEQ TABCR PO SCH (08:58)
[2020-08-05] MEDS: THIAMINE HCL 100 MG TAB PO SCH ×2 (08:58→21:29)
[2020-08-05] MEDS: predniSONE 5 MG TAB PO SCH (08:59)
[2020-08-05] MEDS: SENNA 8.6 MG TAB PO SCH (08:59)
[2020-08-05] MEDS: amLODIPine BESYLATE 5 MG TAB PO SCH (09:00)
[2020-08-05] MEDS: ATORVASTATIN 20 MG TAB PO SCH (09:01)
[2020-08-05] MEDS: ASPIRIN 81 MG ECTAB PO SCH (09:01)
[2020-08-05] MEDS: PANTOprazole 40 MG TAB PO SCH (09:01)
[2020-08-05] MEDS: TRIAMCINOLONE ACET 0.1% CR 80 GM TUBE EXT SCH ×3 (09:01→21:29)
[2020-08-05] MEDS: ENOXAPARIN INJ 40 MG/0.4 ML SYR SQ SCH (09:02)
[2020-08-05] MEDS: POLYETHYLENE (MIRALAX) 17 GM PACK PO SCH (09:02)
[2020-08-05] MEDS: MUPIROCIN 2% OINT 22 GM TUBE EXT SCH ×2 (09:02→21:31)
--- NOTE | 2020-08-05 21:25 | Hospitalist Progress Note ---
Date of Service August 05, 2020 Assessment & Plan (1) Weakness: Improving nicely with time and with PT/OT. Suspect 2nd to combination of UTI + COVID-19 infection at time of admission. Hypokalemia likely also contributed. TIA or stroke was entertained as possible etiology at time of admission. CVA ruled out on 07/23 with negative MRI. Checked B12, folate, B1, sed rate, crp -- all wnl; B1 level pending. Cont B1 200mg BID while awaiting the lab. CTA neck on 07/21 showed possible fibromuscular dysplasia with beaded appearance of bilateral carotids. Consider diagnostic angiogram at [place] for above. Echo pending - suspect she has . But no signs of CHF, etc. Follow up in neurology clinic in 6-8 weeks. Continue asa and statin. Awaiting placement. (2) UTI (urinary tract infection): resolved. s/p ceftriaxone x 3 days earlier this stay. (3) COVID-19: Cephaid was positive on 07/21/20. Do suspect she had COVID-19 but fortunately with few to no symptoms. Biggest symptom was likely the fatigue. This has improved. airborne precautions have been d/c. she is in regular room now. (4) Diabetes: HbA1c 8.1% this admission. cont lantus 6 units HS. cont novolog with meals. excellent control. at discharge - januvia? 1 shot of lantus/day? other? (5) Hypertension: controlled cont norvasc, HCTZ, and JOSE. (6) Seronegative arthritis: Follows with Dr. Jameson, [facility]. stress dose steroids course resolved. back to 5mg/day which is chronic dose for her. no evidence of arthritis flare. (7) Chronic left shoulder pain: Appreciate ortho consult. Suspected rotator cuff issues with left shoulder. She had c/o left arm weakness at time of admission - suspected to be from the shoulder issue. Symptoms now much better - no further weakness, left shoulder w/o pain, etc f/u ortho post-d/c (Dr Sean Navarro). (8) Chronic kidney disease, stage 3a: baseline CrCrl 40s/50s last few BMPs have been stable (9) Constipation: continue miralax for maintenance (10) Hypokalemia: resolved (11) Rash: 2 separate issues -- 1. contact dermatitis low back/upper buttocks - triamcinolone cream 0.1% TID in thin amounts - improved 2. 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 ([facility] location) daughter updated earlier this weekend Admission and Anticipated Discharge Date Admission Date: July 21, 2020 Results & Data Results & Data ([facility]) Vital Signs (Past 12 Hours) Vital Signs Temp Pulse Resp BP Pulse Ox 08/05/20 14:46 36.4 C L 85 16 101/65 95 PG Care Time/CCT Total # of Minutes Spent Total Time Spent with Patient: Total time spent is greater than 50% in coordination of care (as documented) at patient's floor/unit and/or counseling patient: Coding Level of Care Code 18057 Subseq Hosp Care Lvl 2 Diagnoses Weakness R53.1 UTI (urinary tract infection) N39.0 COVID-19 U07.1 Diabetes E11.9 Hypertension I10 Seronegative arthritis M13.80 Chronic left shoulder pain M25.512; G89.29 Chronic kidney disease, stage 3a N18.31 Constipation K59.00 Hypokalemia E87.6 Rash R21 DVT prophylaxis Z29.9
[2020-08-05] MEDS: lisinopril 20 MG TAB PO SCH (21:28)
[2020-08-05] MEDS: INSULIN GLARGINE SOLOSTAR 100 UNITS/ML 3 ML PEN SC SCH (21:28)
[2020-08-06] MEDS: INSULIN ASPART 100 UNITS/ML 3 ML PEN SC SCH ×4 (09:45→20:56)
[2020-08-06] MEDS: ASPIRIN 81 MG ECTAB PO SCH (09:49)
[2020-08-06] MEDS: amLODIPine BESYLATE 5 MG TAB PO SCH (09:49)
[2020-08-06] MEDS: hydroCHLOROthiazide 25 MG TAB PO SCH (09:49)
[2020-08-06] MEDS: THIAMINE HCL 100 MG TAB PO SCH ×2 (09:50→20:53)
[2020-08-06] MEDS: ATORVASTATIN 20 MG TAB PO SCH (09:50)
[2020-08-06] MEDS: SENNA 8.6 MG TAB PO SCH (09:50)
[2020-08-06] MEDS: predniSONE 5 MG TAB PO SCH (09:50)
[2020-08-06] MEDS: PANTOprazole 40 MG TAB PO SCH (09:50)
[2020-08-06] MEDS: POTASSIUM CHLORIDE CRTAB 20 MEQ TABCR PO SCH (09:50)
[2020-08-06] MEDS: POLYETHYLENE (MIRALAX) 17 GM PACK PO SCH (10:00)
[2020-08-06] MEDS: ENOXAPARIN INJ 40 MG/0.4 ML SYR SQ SCH (10:01)
[2020-08-06] MEDS: MUPIROCIN 2% OINT 22 GM TUBE EXT SCH ×2 (10:04→20:55)
[2020-08-06] MEDS: TRIAMCINOLONE ACET 0.1% CR 80 GM TUBE EXT SCH ×3 (10:06→20:55)
[2020-08-06] MEDS: lisinopril 20 MG TAB PO SCH (20:53)
[2020-08-06] MEDS: INSULIN GLARGINE SOLOSTAR 100 UNITS/ML 3 ML PEN SC SCH (20:56)
--- NOTE | 2020-08-06 21:50 | Hospitalist Progress Note ---
Date of Service August 06, 2020 Assessment & Plan (1) Weakness: Improving nicely with time and with PT/OT. Suspect 2nd to combination of UTI + COVID-19 infection at time of admission. Hypokalemia likely also contributed. TIA or stroke was entertained as possible etiology at time of admission. CVA ruled out on 07/23 with negative MRI. Checked B12, folate, B1, sed rate, crp -- all wnl; B1 level pending. Cont B1 200mg BID while awaiting the lab. CTA neck on 07/21 showed possible fibromuscular dysplasia with beaded appearance of bilateral carotids. Consider diagnostic angiogram at [place] for above. Echo pending - suspect she has . But no signs of CHF, etc. Follow up in neurology clinic in 6-8 weeks. Continue asa and statin. Awaiting placement. (2) UTI (urinary tract infection): resolved. s/p ceftriaxone x 3 days earlier this stay. (3) COVID-19: Cephaid was positive on 07/21/20. Do suspect she had COVID-19 but fortunately with few to no symptoms. Biggest symptom was likely the fatigue. This has improved. airborne precautions have been d/c. she is in regular room now. (4) Diabetes: HbA1c 8.1% this admission. cont lantus 6 units HS. cont novolog with meals. excellent control. at discharge - januvia? 1 shot of lantus/day? other? (5) Hypertension: controlled cont norvasc, HCTZ, and JOSE. (6) Seronegative arthritis: Follows with Dr. Jameson, [facility]. stress dose steroids course resolved. back to 5mg/day which is chronic dose for her. no evidence of arthritis flare. (7) Chronic left shoulder pain: Appreciate ortho consult. Suspected rotator cuff issues with left shoulder. She had c/o left arm weakness at time of admission - suspected to be from the shoulder issue. Symptoms now much better - no further weakness, left shoulder w/o pain, etc f/u ortho post-d/c (Dr Sean Navarro). (8) Chronic kidney disease, stage 3a: baseline CrCrl 40s/50s last few BMPs have been stable (9) Constipation: continue miralax for maintenance (10) Hypokalemia: resolved (11) Rash: 2 separate issues -- 1. contact dermatitis low back/upper buttocks - triamcinolone cream 0.1% TID in thin amounts - improved 2. 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 ([facility], [place] location) daughter updated earlier this weekend Admission and Anticipated Discharge Date Admission Date: July 21, 2020 Subjective 85 yo female reports feeling well. She has no new complaints. Review of Systems Review of Systems: All systems reviewed & are unremarkable except as noted in HPI & below Physical Exam Physical Exam: Constitutional: + thin and + altered mental status (pleasant confusion - baseline); no acute distress ENMT: external ear and nose normal, oropharynx normal Respiratory: normal respiratory effort, lungs clear to auscultation no respiratory distress Auscultation: no wheezes Cardiovascular: Rate/Rhythm: regular rate and regular rhythm Heart Sounds: normal S1, normal S2 and + murmur (2/6 holosystolic RUSB ) Vessels: posterior tibial pulses present and dorsalis pedis pulses present; no JVD Extremities: no edema Gastrointestinal (Abdomen): normal bowel sounds, soft, nontender, no hepatosplenomegaly Skin: + rash (Open sores ("fruit picker sores") arms/legs; rash - low back - improved) Psychiatric: Orientation: alert, oriented to person and oriented to place; + not oriented to time Results & Data Results & Data ([facility]) Vital Signs (Past 12 Hours) Vital Signs Temp Pulse Pulse Resp BP BP Pulse Ox 08/06/20 20:52 68 114/68 94 08/06/20 15:15 36.7 C 74 16 116/71 97 PG Care Time/CCT Total # of Minutes Spent Total Time Spent with Patient: Total time spent is greater than 50% in coordination of care (as documented) at patient's floor/unit and/or counseling patient: Coding Level of Care Code 15488 Subseq Hosp Care Lvl 1 Diagnoses Weakness R53.1 UTI (urinary tract infection) N39.0 COVID-19 U07.1 Diabetes E11.9 Hypertension I10 Seronegative arthritis M13.80 Chronic left shoulder pain M25.512; G89.29 Chronic kidney disease, stage 3a N18.31 Constipation K59.00 Hypokalemia E87.6 Rash R21 DVT prophylaxis Z29.9
[2020-08-07] MEDS: INSULIN ASPART 100 UNITS/ML 3 ML PEN SC SCH (09:50)
[2020-08-07] MEDS: ATORVASTATIN 20 MG TAB PO SCH (09:54)
[2020-08-07] MEDS: POTASSIUM CHLORIDE CRTAB 20 MEQ TABCR PO SCH (09:54)
[2020-08-07] MEDS: THIAMINE HCL 100 MG TAB PO SCH (09:54)
[2020-08-07] MEDS: predniSONE 5 MG TAB PO SCH (09:55)
[2020-08-07] MEDS: ASPIRIN 81 MG ECTAB PO SCH (09:55)
[2020-08-07] MEDS: hydroCHLOROthiazide 25 MG TAB PO SCH (09:55)
[2020-08-07] MEDS: POLYETHYLENE (MIRALAX) 17 GM PACK PO SCH (09:55)
[2020-08-07] MEDS: ENOXAPARIN INJ 40 MG/0.4 ML SYR SQ SCH (09:55)
[2020-08-07] MEDS: PANTOprazole 40 MG TAB PO SCH (09:55)
[2020-08-07] MEDS: SENNA 8.6 MG TAB PO SCH (09:55)
[2020-08-07] MEDS: amLODIPine BESYLATE 5 MG TAB PO SCH (09:55)
[2020-08-07] MEDS: MUPIROCIN 2% OINT 22 GM TUBE EXT SCH (09:56)
[2020-08-07] MEDS: TRIAMCINOLONE ACET 0.1% CR 80 GM TUBE EXT SCH (09:56)
--- NOTE | 2020-08-14 11:11 | Discharge Summary ---
Date of Service August 06 2020 Admission HPI Per Admitting Provider Elise Levy is here for weakness in her left upper extremity and her bilateral lower extremity. She was somewhat confused on exam and would given different answers for the same question throughout the exam. She initially mentioned that the left arm weakness was over the last week bu then said that it was over the last few years. In talking to her daughter and son they mentioned that this has been going on over the last day; since this morning and did not notice it prior to that. Children expressed their concern that she was not able to ambulate very well. She denies any falls recently. Communication is also difficult due to hearing impairment. She received the COVID vaccine in May and she was COVID negative at [facility] prior to arrival but did test positive here. She denies pain with urination. Principal Diagnosis weakness Discharge Exam Constitutional: + thin and + altered mental status (pleasant confusion - baseline); no acute distress ENMT: external ear and nose normal, oropharynx normal Respiratory: normal respiratory effort, lungs clear to auscultation no respiratory distress Auscultation: no wheezes Cardiovascular: Rate/Rhythm: regular rate and regular rhythm Heart Sounds: normal S1, normal S2 and + murmur (2/6 holosystolic RUSB ) Vessels: posterior tibial pulses present and dorsalis pedis pulses present; no JVD Extremities: no edema Gastrointestinal (Abdomen): normal bowel sounds, soft, nontender, no hepatosplenomegaly Skin: + rash (Open sores ("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") arms/legs; rash - low back - improved) Psychiatric: Orientation: alert, oriented to person and oriented to place; + not oriented to time Discharge Data Allergies Allergy/AdvReac Type Severity Reaction Status Date / Time metformin AdvReac Mild diarrhea Verified 07/21/20 17:59 aspirin AdvReac Unknown DIARRHEA Unverified 07/21/20 17:59 Penicillins AdvReac Unknown DIARRHEA Unverified 07/21/20 17:59 Consultations 07/21/20 20:46 ED Decision to Admit Stat 07/22/20 02:05 Consult Neurology Routine 07/24/20 07:20 Consult Orthopedic Surgery Routine Ordered Studies 07/21/20 18:06 CT angio head w con Stat CT angio neck with con Stat CT head/brain wo con Stat 07/23/20 16:41 MR brain wo con Routine Hospital Course (1) Weakness: Improving nicely with time and with PT/OT. Suspect 2nd to combination of UTI + COVID-19 infection at time of admission. Hypokalemia likely also contributed. TIA or stroke was entertained as possible etiology at time of admission. CVA ruled out on 07/23 with negative MRI. Checked B12, folate, B1, sed rate, crp -- all wnl; B1 level pending. Cont B1 200mg BID while awaiting the lab. CTA neck on 07/21 showed possible fibromuscular dysplasia with beaded appearance of bilateral carotids. Consider diagnostic angiogram at [place] for above. Echo pending - suspect she has . But no signs of CHF, etc. Follow up in neurology clinic in 6-8 weeks. Continue asa and statin. [facility] to [facility] facility (2) UTI (urinary tract infection): resolved. s/p ceftriaxone x 3 days earlier this stay. (3) COVID-19: Cephaid was positive on 07/21/20. Do suspect she had COVID-19 but fortunately with few to no symptoms. Biggest symptom was likely the fatigue. This has improved. airborne precautions have been d/c. she is in regular room now. (4) Diabetes: HbA1c 8.1% this admission. cont lantus 6 units HS. cont novolog with meals. excellent control. at discharge - januvia? 1 shot of lantus/day? other? (5) Hypertension: controlled cont norvasc, HCTZ, and JOSE. (6) Seronegative arthritis: Follows with Dr. Jameson, [facility]. stress dose steroids course resolved. back to 5mg/day which is chronic dose for her. no evidence of arthritis flare. (7) Chronic left shoulder pain: Appreciate ortho consult. Suspected rotator cuff issues with left shoulder. She had c/o left arm weakness at time of admission - suspected to be from the shoulder issue. Symptoms now much better - no further weakness, left shoulder w/o pain, etc f/u ortho post-d/c (Dr Sean Navarro). (8) Chronic kidney disease, stage 3a: baseline CrCrl 40s/50s last few BMPs have been stable (9) Constipation: continue miralax for maintenance (10) Hypokalemia: resolved (11) Rash: 2 separate issues -- 1. contact dermatitis low back/upper buttocks - triamcinolone cream 0.1% TID in thin amounts - improved 2. 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 Improved. (12) DVT prophylaxis: Lovenox 40 mg SQ daily 07/31 -- [employer] insurance denied request for SNF placement at [facility] in progress - filed this past Tuesday by family back-up plan - [facility]? ([facility] [place] location) daughter updated earlier this weekend Total Time Total Time Spent Total Time Spent (In Minutes): 32 Total Time Includes: Examination of the Patient, Discharge Planning and Medication Reconciliation Discharge Plan Discharge Items Patient Disposition: Transfer Custodial Fac Reason For Visit: WEAKNESS Discharge Diagnosis: weakness Activity: Resume your previous activity Non-emergency contact: Primary Care Provider Call non-emergency contact if: you have any medication questions Follow-up/Referrals: Jewels Aburto CRNP [Primary Care Provider] - Diet: Carb Consistent or DM2 Addtl Attending Provider Instructions: You have been hospitalized for an acute medical problem. During your stay at [facility], we have made an effort to correct the problem that brought you to the hospital while keeping you as comfortable as possible. Medications were used to bring your condition under control and your discharge instructions will include directions for any medications you should take after leaving the hospital. Please make sure you see your Primary Care Provider as part of your follow up plan. You may have diabetes secondary to the prednisone. Check morning blood sugars. Your blood sugar was elevated: will recommend starting metformin and glipizide. Once prednisone is stopped, you can stop these 2 medications: metformin and glipizide Recommend followup with PCP in 1-2 weeks Blood sugar checks ACHS FOR 1 WEEK, FOLLOWED BY FASTING BLOOD SUGAR THEREAFTER. Pending Studies at Discharge: No Stand-Alone Forms: My [facility] Skilled Items Patient informed of condition?: No DNR: No Discharge Level of Care: Acute rehab Communicable Disease: No Discharge Prognosis: Stable Lines: None Urinary Catheter: No Medications and DC Order Prescriptions: New acetaminophen 325 mg Tablet 650 mg PO Q4H PRN (Reason: fever or pain) Qty: 30 RF: 0 atorvastatin 20 mg Tablet 20 mg PO QAM Qty: 30 RF: 0 lisinopril 20 mg Tablet 20 mg PO HS Qty: 30 RF: 0 amlodipine [Norvasc] 5 mg Tablet 5 mg PO QAM Qty: 30 RF: 0 aspirin 81 mg Tablet,Delayed Release (Dr/Ec) 81 mg PO QAM Qty: 30 RF: 0 sennosides [Senokot] 8.6 mg Tablet 17.2 mg PO QAM Qty: 30 RF: 0 potassium chloride [Klor-Con M20] 20 mEq Tablet,Er Particles/Crystals 20 meq PO Q OTHER DAY Qty: 15 RF: 0 polyethylene glycol 3350 [Miralax] 17 gram Powder In Packet 17 g PO DAILY PRN (Reason: constipation) Qty: 14 RF: 0 thiamine HCl (vitamin B1) [Vitamin B-1] 100 mg Tablet 200 mg PO BID Qty: 30 RF: 0 glipizide 2.5 mg tablet extended release 24hr 2.5 mg PO DAILY Qty: 30 RF: 0 metformin 500 mg tablet extended release 24 hr 500 mg PO DAILY Qty: 30 RF: 0 Continued prednisone 5 mg tablet 5 mg PO DAILY Qty: 30 RF: 0 multivitamin [Daily Multi-Vitamin] tablet 1 tab PO DAILY Qty: 30 RF: 0 omeprazole 20 mg capsule,delayed release(DR/EC) 20 mg PO DAILY Qty: 30 RF: 3 Caltrate 600 plus D 600 mg (1,500 mg)-800 unit tablet,chewable 1 tab PO DAILY Qty: 30 RF: 0 Changed hydrochlorothiazide 25 mg tablet 25 mg PO DAILY Qty: 30 RF: 0 Discontinued potassium chloride 10 mEq capsule, extended release 10 meq PO DAILY RF: 0 Discharge Orders: Discharge Order (Routine); Ordered 08/07/20 Ordered By: Rivera Lawrence/Other Patient Handouts: 2019-nCoV, COVID-19 Prevention, A1C, Simple Ways to Avoid COVID-19 Admission Data Admit Date/Time: 07/21/20 22:56 Attending Provider: Rivera Macario Admit Provider: Kristopher Stevens Primary Care Provider: Jewels Aburto Other Providers: David Mendoza ; Rosalie, ; Pavan Huffman ; Laura Hagan ; Rodriguez Vang Other Interventions: Discharge Summary Assessment (RN) Last Done: 08/07/20 12:22 Coding Level of Care Code D/C Day Management >30 mins Diagnoses Weakness R53.1 UTI (urinary tract infection) N39.0 COVID-19 U07.1 Diabetes E11.9 Hypertension I10 Seronegative arthritis M13.80 Chronic left shoulder pain M25.512; G89.29 Chronic kidney disease, stage 3a N18.31 Constipation K59.00 Hypokalemia E87.6 Rash R21 DVT prophylaxis Z29.9 Time Spent (min) 32
== END 2020-08-07 13:37 | disposition home or self-care (01) | DRG 177 ==
LOC: ED 17:24 → SUATTDRO 22:56 → 2N 07-22 → SUATTDRO 07-22 → 2N 07-22 01:23 → 2W 08-01 19:53 → 3E 08-02 22:19